=== PATIENT | male | born 1960 | race Caucasian/White ===

== ENCOUNTER 2018-04-10 10:21 | Outpatient (CLI) | payer BC, SELFPAY ==
[2018-04-10 11:57] LABS: BUN 19 mg/dL (7-18); CREATININE 0.82 mg/dL (0.70-1.30); Chloride 100 mmol/L (98-107); Glucose 143 mg/dL (70-100); Magnesium 1.7 mg/dL (1.8-2.4); Potassium 4.5 mmol/L (3.5-5.1); Sodium 139 mmol/L (136-145)
== END 2018-04-10 10:22 ==
PROVIDERS: PCP Family Medicine; Visit Provider Internal Medicine Cardiovascular Disease
DX: I48.0 Paroxysmal atrial fibrillation (principal)
CPT/HCPCS: 36415; 80048; 83735

== ENCOUNTER 2018-04-21 10:00 | Outpatient (RCR) | payer BC, SELFPAY ==
--- NOTE | 2018-04-13 09:00 | IE_ITS ---
Date: April 13, 2018 Referring: Jason Hoffmann MD M.D. Diagnosis: Cervical radiculopathy P.T. Diagnosis: Same SUBJECTIVE: History of Present Illness: Dannie complains of intermittent aching sensation throughout the L suprascapular area, occasionally associated with pain throughout the posterolateral L humerus, extensor surface of the forearm and into the thumb. This is associated with paresthesias. His 2nd complaint is of a numbness throughout the L thumb and radial aspect of the forearm. A 58 year old male who developed an onset of cervical spine and L UE pain, and paresthesias approximately 6 weeks ago. He notes his symptoms have intensified some. He has had a couple massage sessions and this gives him some symptomatic relief for 2-3 days. Pain Ratin-7/10 Pain Location: Throughout the L trap, medial L scapular border, and posterolateral aspect of the L humerus, medial aspect of the forearm and into the thumb. Prior Level of Function: Independent with all ADL's Current Level of Function: Continues to work, tends to be more symptomatic on his work days. This increases with lifting heavier weights off the floor. 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 Single, lives with a relative. Comorbidities: A-fib, hypertension and diabetes. Falls in the last year: __X__ No ____Yes - How many? ____ - (if over 2, balance SM needs to be completed) Reported hospitalizations in the last year - __X__ No ____ Yes - Dates of admission/reason: Medications: See Dr. Hoffmann's med list. Quality of Life: ____ Excellent __X__ Good ____ Fair ____ Poor Standardized Measures: NDI score: __12%__ OBJECTIVE: Posture: Obese, mesomorphic, (-) lateral shift, although his head is slightly rotated to the R. Observation: (behavior, atrophy, skin color, etc.) No pain behavior noted, pleasant, and cooperative. Gait: Ambulates without antalgia, able to walk on his heel and toes without weakness. Palpation: Has some increased tone and tenderness throughout the posterolateral cervical musculature on the L compared to the R from PC2-7 and the supra and infraspinatus fossa, and infraspinatus fossa compared to the R. ROM: His cervical spine movements in sitting position are limited in all directions with rotation R 60-70 degrees, L 45-50 degrees. Sidebending to the R 45 to 55 degrees, to the L 35-45 degrees. Extension is 15 to 30 degrees with deviation to the R. Has reproduction of his symptoms with extension, sidebending and rotation to the L. His shoulder motion reveals good initiation of flexion/abduction without pain on movement. R thumb is about the T11 level when reaching behind his back, L thumb 1 above. Elbow, forearm, wrist and digit movements are full and painless with movement. Neuro: Decreased brachioradialis and lesser degree bicep on L compared to the R. Triceps +2 and symmetrical. Has weakness with the ECR and ECU as well as the extensor digitorum and brachioradialis, and bicep. Remaining musculature is 5/5. His grasp on R is 60#, L 30#. Wrist migrates into a flexed position when grasping due to the weak wrist extensors. Diminished sensation to pin prick throughout the C6 dermatomal distribution, that is radial aspect of distal forearm and thumb. Special Tests: Has pain with neuroforaminal closure on the L, some relief with placing his L hand behind his head to decrease tension on the spinal nerve roots , and inconsistent with manual traction in sitting position, but in supine creates some relief. Also with sidebending and rotation to the R to open up the neuroforamen. Treatment: IE: [id number] Manual therapy: ([id number]). Direct treatment time: 60 mins Total treatment time: 60 mins ASSESSMENT: Patient is a 58-year-old male, referred for PT services with the diagnosis of cervical radiculopathy. Patient presents with clinical signs and symptoms consistent with a C6 radiculopathy resulting in motor weakness within the C6 myotome and sensory loss to pin prick in the C6 dermatome, as demonstrated by the following impairment level findings: weakness with gripping and persistent intermittent L UE and cervical spine pain. Impairments are contributing to the following functional limitations: Discomfort with all activities, fortunately he is sleeping relatively well. Patient is assessed as: __X__ Low 67330 ____ Moderate [id number] ____ High [id number] complexity, based on the following: History: (list): Insidious onset of a C6 radiculopathy resulting in weakness in C6 myotome and sensory diminution with C6 dermatome. X See comorbidities and social history. Examination: (list): Pain with all functional activities, especially lifting X See above for functional limitations and impairments. Presentation: Stable . X Evolving Unstable Decision-Making: X Low complexity Moderate complexity High complexity % Disability based on NDI of 12% __X__ Patient requires skilled PT intervention to remediate the above functional limitations to return to: __X__ Premorbid level of function Prognosis: ____ Excellent __X__ Good ____ Fair ____ Poor STG: __6__ weeks. 1: Decrease compressive loading of the C6 nerve root to allow healing. 2: Clear out trigger points secondary to muscular splinting due to pain, to create comfort with regular ADL's. LTG: __12__ weeks. 1: Return to premorbid level of function. PLAN: Session today consisted of the evaluation along with instruction in a HEP consisting of neuroforaminal opening exercises for L. Position his work load to the R allows him to rotate in this direction vs the opposite direction, etc. . . I tried a session of over the door traction with 11#, this was comfortable, so I sent him home with a unit to be used as needed especially when symptomatic. He will have a follow up appt in 1 week. If his symptoms persist, or regress to contact me, otherwise will re-evaluate him in one week. Thank you for this referral. Please do not hesitate to contact me with any questions or concerns regarding this patient's plan of care.
--- NOTE | 2018-04-21 10:00 | PTTR_ITS ---
DATE: 04/21/18 SUBJECTIVE: Dannie states that his symptoms are pretty much unchanged compared to last week. He has used the over the door traction unit occasionally , but without any significant change in his symptoms. He complains of intermittent discomfort throughout the posterolateral aspect of the cervical spine into the suprascapular area and interscapular region on the L, as well as occasional paresthesias throughout the C6 dermatome. He feels his sensation is a little better distally though compared to what it was. OBJECTIVE: Was seen approximately 1 week ago with a C6 radiculitis. He was issued a cervical over the door traction unit and has used it a few times. His cervical spine movements show intensification of his symptoms with neck extension, rotation and sidebending to the L. It diminishes with sidebending to the R. When I assess his cervical spine he is limited to about 30 degrees and his head deviates to the R to open up the neuroforamen on the L. AA in supine position with mobilization and manual traction, he gets close to 60 degrees of sidebending to the R as well as rotation to the R, close to 80 degrees. Sidebending to the L though creates symptoms at around 10-15 degrees and with some light traction I can increase him from 30 to 45 before his symptoms occur. His rotation is close to 70 degrees with traction. 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 He also had a couple trigger points throughout the paraspinal muscles in the upper to mid cervical spine on the L and I clear these with Kervin strain, counterstrain techniques followed by gentle myofascial stretching. Manual therapy: ([id number]). Direct treatment time: 30 mins Total treatment time: 30 mins A: Continues to be symptomatic, which is to be expected. He is about 8 weeks since his symptoms occurred. I contacted Dr. Hoffmann's office to discuss his medication regime, possibility of starting some oral steroids. I talked to his nurse as he was not available, I emailed him a note discussing this. See how he responds. P: Have Shahzad continue with his HEP using traction especially when he is symptomatic. Avoid rotating and sidebending his head to the L and extending. Contact him once I hear from Dr. Hoffmann. DLW/domonique
== END 2018-05-01 23:59 | disposition home or self-care (01) ==
LOC: PT 10:00
PROVIDERS: PCP Family Medicine; Referring Provider Family Medicine; Visit Provider Family Medicine
DX: M50.122 Cervical disc disorder at C5-C6 level with radiculopathy (principal)
CPT/HCPCS: 97140; 97161

== ENCOUNTER 2018-06-15 14:32 | Outpatient (CLI) | payer BC, SELFPAY ==
--- NOTE | 2018-06-15 13:08 | DI.RAD_ITS ---
SYMPTOMS/DIAGNOSIS: CERVICAL RADICULOPATHY, M54.12 CERVICAL SPINE: Eight views were obtained. There is some loss of the cervical lordosis. There is slight disc space narrowing at C 4 - 5 and moderate disc space narrowing at C 6 - 7 consistent with disc degeneration. Moderate hypertrophic spurring is noted involving the vertebral endplates particularly at C 6 - 7. Mild facet joint hypertrophic degenerative changes noted throughout the cervical region. The neural foramina appear fairly well maintained on the images obtained. No erosive or destructive lesions seen. CONCLUSION: Degenerative changes of the cervical spine as described above.
== END 2018-06-15 14:52 ==
PROVIDERS: PCP Family Medicine; Visit Provider Family Medicine
DX: M54.12 Radiculopathy, cervical region (principal); M50.33 Other cervical disc degeneration, cervicothoracic region
CPT/HCPCS: 72050

== ENCOUNTER 2018-08-21 17:43 | Outpatient (REF) | payer BC, SELFPAY | END 2018-08-21 18:03 | LOC: NCHCN 17:43 | PROVIDERS: PCP Family Medicine; Visit Provider Family Medicine | DX: E83.42 Hypomagnesemia (principal); Z53.8 Procedure and treatment not carried out for other reasons | CPT/HCPCS: 80048; 85027; 83735 ==

== ENCOUNTER 2018-08-26 19:13 | Outpatient (REF) | payer BC, SELFPAY ==
[2018-08-26 19:47] LABS: Anion Gap 8.4 mmol/L (3-11); BUN 17 mg/dL (7-18); CO2 30.6 mmol/L (21.0-32.0); CREATININE 0.73 mg/dL (0.70-1.30); Calcium 9.1 mg/dL (8.5-10.1); Chloride 98 mmol/L (98-107); Glucose 182 mg/dL (70-100); Magnesium 1.9 mg/dL (1.8-2.4); Potassium 4.4 mmol/L (3.5-5.1); Sodium 137 mmol/L (136-145)
[2018-08-26 19:59] LABS: HCT 44.5 % (40.0-50.0); HGB 14.3 g/dL (13.5-17.5); Mean Corp. HGB Concentration 32.1 g/dL (32.0-36.0); Mean Corpuscular Hemoglobin 26.9 pg (27.0-33.0); Mean Corpuscular Volume 83.8 fL (80-95); Mean Platelet Volume 11.6 fL (8.0-11.0); Platelet Count 288 x1000/uL (130-400); RBC 5.31 m/cumm (4.50-6.00); White Blood Cell Count 10.54 k/cumm (4.4-10.8)
== END 2018-08-26 19:33 ==
LOC: NCHCN 19:13
PROVIDERS: PCP Family Medicine; Visit Provider Family Medicine
DX: E83.42 Hypomagnesemia (principal); I10 Essential (primary) hypertension; I48.0 Paroxysmal atrial fibrillation; Z01.818 Encounter for other preprocedural examination
CPT/HCPCS: 80048; 85027; 83735

== ENCOUNTER 2019-01-27 10:37 | Outpatient (CLI) | payer BC, SELFPAY ==
--- NOTE | 2019-01-27 10:35 | DI.RAD_ITS ---
SYMPTOMS/DIAGNOSIS: PAIN RIGHT KNEE: AP and lateral images are provided. Degenerative changes involving the patellofemoral joint are noted and there are small periarticular hypertrophic spurs. On the frontal image there are some faint calcific densities projected over the medial and lateral tibial eminence raising the possibility of joint mice. There is no significant narrowing of the medial and lateral tibial femoral joint compartment. SUMMARY: Findings consistent with moderate DJD.
== END 2019-01-27 10:57 ==
PROVIDERS: PCP Family Medicine; Visit Provider Physician Assistant Surgical
DX: M25.561 Pain in right knee (principal); M17.11 Unilateral primary osteoarthritis, right knee
CPT/HCPCS: 73560

== ENCOUNTER 2019-03-05 08:36 | Outpatient (CLI) | payer BC, SELFPAY | END 2019-03-05 08:56 | PROVIDERS: PCP Family Medicine; Visit Provider Internal Medicine Cardiovascular Disease | DX: I48.91 Unspecified atrial fibrillation (principal); I10 Essential (primary) hypertension; Z79.01 Long term (current) use of anticoagulants; Z79.899 Other long term (current) drug therapy | CPT/HCPCS: 93005; 93010 ==

== ENCOUNTER 2019-03-08 10:58 | Outpatient (CLI) | payer BC, SELFPAY ==
[2019-03-08 12:34] LABS: Anion Gap 10.1 mmol/L (3-11); BUN 17 mg/dL (7-18); CO2 26.9 mmol/L (21.0-32.0); CREATININE 0.86 mg/dL (0.70-1.30); Chloride 98 mmol/L (98-107); Glucose 266 mg/dL (70-100); Magnesium 1.8 mg/dL (1.8-2.4); Potassium 4.9 mmol/L (3.5-5.1); Sodium 135 mmol/L (136-145)
== END 2019-03-08 11:18 ==
PROVIDERS: PCP Family Medicine; Visit Provider Internal Medicine Cardiovascular Disease
DX: I48.91 Unspecified atrial fibrillation (principal)
CPT/HCPCS: 36415; 80048; 83735

== ENCOUNTER 2019-07-27 11:27 | Outpatient (CLI) | payer BC, SELFPAY ==
--- NOTE | 2019-07-27 11:21 | DI.RAD_ITS ---
EXAM: XR KNEE RT 2V AP,LAT INDICATION: pain. COMPARISON: XR knee RT 2V AP,lat from 01/27/2019 TECHNIQUE: 2D digital imaging was performed. FINDINGS: The femoral tibial joint spaces are well maintained. There is spurring from the femoral condyles and tibial plateaus. Multiple joint space loose bodies are seen. There is severe narrowing of the sutherland llofemoral joint with a [id number] appearance and prominent spurring. IMPRESSION: Severe patellofemoral degenerative changes and joint space loose bodies.
== END 2019-07-27 11:47 ==
PROVIDERS: PCP Family Medicine; Visit Provider Orthopaedic Surgery
DX: M25.561 Pain in right knee (principal); M23.41 Loose body in knee, right knee; M22.2X1 Patellofemoral disorders, right knee
CPT/HCPCS: 73560

== ENCOUNTER 2019-08-18 10:13 | Outpatient (REF) | payer BC, SELFPAY ==
[2019-08-18 19:31] LABS: Anion Gap 10.3 mmol/L (3-11); BUN 19 mg/dL (7-18); CO2 28.7 mmol/L (21.0-32.0); CREATININE 0.73 mg/dL (0.70-1.30); Calcium 9.2 mg/dL (8.5-10.1); Chloride 99 mmol/L (98-107); Glucose 124 mg/dL (74-106); Magnesium 1.8 mg/dL (1.8-2.4); Potassium 4.5 mmol/L (3.5-5.1); Sodium 138 mmol/L (136-145)
== END 2019-08-18 10:33 ==
LOC: NCHCN 10:13
PROVIDERS: PCP Family Medicine; Visit Provider Family Medicine
DX: I10 Essential (primary) hypertension (principal); Z00.00 Encounter for general adult medical examination without abnormal findings; E83.42 Hypomagnesemia; I48.0 Paroxysmal atrial fibrillation
CPT/HCPCS: 80048; 83735

== ENCOUNTER 2020-01-13 09:08 | Outpatient (CLI) | payer BC, SELFPAY ==
[2020-01-14 15:31] LABS: COVID-19 RT-PCR Result NEGATIVE (Negative)
== END 2020-01-13 09:28 ==
PROVIDERS: PCP Family Medicine; Visit Provider Orthopaedic Surgery
DX: Z11.59 Encounter for screening for other viral diseases (principal); Z01.818 Encounter for other preprocedural examination; M17.11 Unilateral primary osteoarthritis, right knee
CPT/HCPCS: U0003

== ENCOUNTER 2020-01-17 06:05 | Inpatient (IN) | payer BC, SELFPAY ==
[2020-01-17] VITALS (16 sets, daily range): BP systolic 119–152; BP diastolic 53–80; PULSE 72–89; RESP 12–22; TEMP 36.5–37.5; O2SAT 92–98
[2020-01-17] MEDS: Lactated Ringers 1,000 ML 80 ML IV ×2 (06:45→09:07)
[2020-01-17 06:53] LABS: INR 1.2 (0.9-1.1); Prothrombin Time 11.7 sec (9.3-11.0)
[2020-01-17] MEDS: Bupivacaine 0.5% Pres-Free 30 ML VIAL (07:22)
[2020-01-17] MEDS: Bupivacaine LIPOSOME/PF 133 MG/10 ML VIAL IJ (07:22)
--- NOTE | 2020-01-17 07:22 | HPE_ITS ---
Assessment and Plan Assessment and plan (1) Osteoarthritis of right knee: Status: Chronic Assessment and plan: Plan: Patient tested negative for Covid-19 on 01/13/20. Denies any contact with Covid-19 positive persons. Educated patient on surgery covering surgical technique, recovery process, benefits and risks including but not limited to risk of infection, blood clot, damage to soft tissue/blood vessels/nerves in detail. After discussion patient gives verbal understanding of risks and elects to proceed with scheduling surgery. Patient had opportunity to have questions answered to their satisfaction. They will contact office if issues arise. Patient will continue to be scheduled for right TKA with Dr. Calvin. History of Present Illness Narrative: Mr. Montoya is a 59-year-old male who presents to clinic for complaints of right knee pain. He has been seen in orthopedic clinic several times for his right DJD. He saw his PCP and received clearance for surgery on 11/10/2019. Denies any changes in his medical history from that visit. Review of Systems Cardiovascular Cardiovascular: Denies chest pain and Denies dyspnea Respiratory Respiratory: Denies cough and Denies dyspnea [facility] Social History Smoking/Tobacco Use Status: Former Tobacco Use Quit Date: 09/01/90 Tobacco: How many years used: 13 Drug use: Never Household members: spouse Housing: house Do you feel safe in your relationship?: Yes Meds Home Medications and Allergies Home Medications Medication Instructions Recorded Confirmed Type Lantus U-100 Insulin 51 unit SQ HS 01/12/13 01/17/20 History acetaminophen [Tylenol] 650 mg PO PRN PRN 01/12/13 01/17/20 History metformin [Glucophage] 1,000 mg PO BID 01/12/13 01/17/20 History simvastatin 40 mg PO DAILY 03/03/15 01/17/20 History metoprolol tartrate 50 mg PO BID 09/19/15 01/17/20 History lisinopril 40 mg PO DAILY 02/01/16 01/17/20 History torsemide 5 mg PO DAILY 02/07/16 01/17/20 History felodipine 5 mg PO DAILY 03/26/17 01/17/20 History glipizide 10 mg PO DAILY 03/26/17 01/17/20 History nitroglycerin [Nitrostat] 0.4 mg SUBLINGUAL Q5 MIN PRN X3 03/26/17 01/17/20 Rx PRN #25 tab dofetilide [Tikosyn] 500 mcg PO Q12H #180 tab-cap NS 07/17/17 01/17/20 Rx spironolactone 12.5 mg PO DAILY tab-cap 07/17/17 01/17/20 History dulaglutide [Trulicity] 0.75 mg SQ weekly 04/10/18 01/17/20 History warfarin 5 mg tablet 5 mg PO DAILY 01/27/19 01/17/20 History magnesium 250 mg PO DAILY 01/12/20 01/17/20 History Allergies Allergy/AdvReac Type Severity Reaction Status Date / Time No Known Allergies Allergy Verified 11/17/19 10:22 Exam Resp Effort & Inspection: normal respiratory effort and able to speak in complete sentences Auscultation: clear to auscultation bilaterally, no rales, no rhonchi and no wheezes Cardio Heart Sounds: S1 normal, S2 normal and no murmurs Results Labs Labs: Laboratory Results - last 24 hr 01/17/20 06:34 PT 11.7 H INR 1.2 H Last Vital Signs Temp 37.2 C 01/17/20 06:31 Pulse 74 01/17/20 06:31 Resp 16 01/17/20 06:31 BP 141/80 H 01/17/20 06:31 Pulse Ox 97 01/17/20 06:31
[2020-01-17] MEDS: ceFAZolin 2 GM/50 ML BAG IVPB ×3 (07:55→17:54)
[2020-01-17] MEDS: Hydrogen Peroxide 3% 480 ML BTL (08:20)
[2020-01-17] MEDS: Tranexamic Acid 1,000 MG/10 ML VIAL 1000 MG (09:42)
[2020-01-17] MEDS: Normal Saline 100 ML (09:42)
[2020-01-17] MEDS: Normal Saline 50 ML 100 ML (09:42)
--- NOTE | 2020-01-17 11:33 | DI.RAD_ITS ---
EXAM: XR KNEE RT 2V AP,LAT CLINICAL HISTORY: check total knee components in RR. TECHNIQUE: 2D digital imaging was performed. COMPARISON: CR XR KNEE RT 2V AP,LAT from 07/27/2019 FINDINGS: BONES: No acute fracture is present. No bony destructive lesion is seen. JOINTS: The patient is now status post right total knee replacement. The orthopedic hardware appears in good position. SOFT TISSUE: Postsurgical changes are seen in the soft tissues. IMPRESSION: Status post right total knee replacement. DATA REPOSITORY: RADIATION DOSE DELIVERED:
[2020-01-17] MEDS: HYDROmorphone 2 MG/ML VIAL IVP (11:53)
[2020-01-17] MEDS: Normal Saline Flush 10 ML SYR IV ×2 (11:53→12:52)
[2020-01-17] MEDS: POTASSIUM CHLORIDE/0.9% NACL 1,000 ML 125 MEQ IV ×2 (12:52→21:57)
[2020-01-17] MEDS: oxyCODONE-CR 10 MG TABCR PO ×2 (12:59→23:59)
--- NOTE | 2020-01-17 13:36 | IN_ITS ---
Date of service: 01/17/20 Time of Service: 13:36 PT Notes Visit Reasons: OA (R) KNEE Physical Therapy Inpatient Initial Evaluation Date: 01/17/2020 Referring Doctor: Dannie Gganon MD PT Orders: PT CONSULT: Status post Ortho surgery. Get OOB ambulating in room this afternoon. Precautions: Fall. Standard. WBAT on right LE. Patient Profile/Admitting Diagnosis: Dannie is a 59-year-old male with primary osteoarthritis of right knee and is status post total knee arthroplasty on postoperative day 0. He is COVID-19 negative as of 01/13/2020. PMHX: Medical History Paroxysmal atrial fibrillation, no recurrence on rhythm control medication Type 2 diabetes, on oral agents and insulin Hypertension Hyperlipidemia DJD Obstructive sleep apnea with limited CPAP compliance Morbid obesity Chronic diarrhea Surgical History Umbilical hernia repair Right hip arthroplasty Social History/Home Situation: Dannie will transition to his cousin's house upon discharge from this hospital as he states that the house is a more conducive for him having no stairs and having everything that is needed on one floor. He then plans on going to live in a private home with his mother once he is ready. Equipment Owned/DME: Front wheeled walker, single-point cane cane, raised toilet seat, manual recliner Subjective: Patient reports an achy sensation on the right knee and that was aggravated with bed mobility but subsided with ambulation activity. He states that he does feel stiff and the pain is mostly on the top of his knee. He states that he will be headed straight to his cousin's house once discharged from here. He elaborates that he does not have any steps to deal with at his cousin's place and that everything is on one floor. He denies headache, chest pain, and dizziness throughout PT session Objective: General Observation: Mariano wraps under knee immobilizer on right knee. Mijares catheter in place. IV in the left UE. Surgical drain in place. Mental Status: Alert and oriented x4 Pain: Achy type of pain 8/10 from supine to sit went down to 6/10 with ambulation. ROM: Right Upper Extremity: Shoulder Flexion WFL. Shoulder abduction WFL. Elbow flexion WFL. Wrist flexion WFL. Opening and closing of hand WFL. Left Upper Extremity: Shoulder Flexion WFL. Shoulder abduction WFL. Elbow flexion WFL. Wrist flexion WFL. Opening and closing of hand WFL. Right Lower Extremity: Hip flexion NT. Hip abduction NT. Knee flexion NT. Ankle dorsiflexion WFL. Ankle plantarflexion WFL. Left Lower Extremity: Hip flexion WFL. Hip abduction WFL. Knee flexion WFL. Ankle dorsiflexion WFL. Ankle plantarflexion WFL. Strength: Right Upper Extremity: Shoulder flexors 4/5. Shoulder abductors 4/5. Elbow flexors 5/5. Elbow extensors 5/5. Publications Sales Representative strong. Left Upper Extremity: Shoulder flexors 4/5. Shoulder abductors 4/5. Elbow flexors 5/5. Elbow extensors 5/5. Publications Sales Representative strong. Right Lower Extremity: Hip flexors NT. Hip abductors NT. Knee flexors NT. Knee extensors NT. Ankle dorsiflexors 4/5. Ankle plantarflexors 4/5. Left Lower Extremity: Hip flexors 5/5. Hip abductors 4/5. Knee flexors 5/5. Knee extensors 4/5. Ankle dorsiflexors 5/5. Ankle plantarflexors 5/5. Sensation: Intact as to pain and pressure on bilateral lower extremities. Bed Mobility/Transfers: Rolling contact-guard assist Supine to sit contact-guard assist with HOB at 45 degrees Sit to stand contact-guard assist with verbal cueing needed for hand placement Stand to sit contact-guard assist with verbal cueing needed to slide right LE forward to minimize pain during descent Bed to chair contact-guard assist with verbal cueing needed for hand placement Chair to bed contact-guard assist with verbal cueing needed for hand placement Gait: Patient tolerated level surface ambulation of 60 feet with step to gait pattern using the front wheeled walker with WBAT on right LE requiring contact- guard assist of PT and wheelchair follow and IV pole management of POWER SAW MECHANIC. Decreased alanna. Step to gait pattern. Decreased knee flexion on right due to knee immobilizer and postop status. Balance: Static Sitting: Normal Dynamic Sitting: Good Static Standing: Fair Dynamic Standing: Fair Special Tests: Mobility Limitations Standardized Measure [facility] AM-PAC 6 clicks Basic Mobility Inpatient Short Form: Raw Score: 18 CMS Score: 47% deficit Informed Consent/Education: Patient instructed in purpose of PT consult and plan of care. Assessment: Patient demonstrates need for an assistive device for all mobility ADL performance, difficulty with walking, unsteadiness of gait, decreased range of motion and strength right knee muscle group. Patient presents with clinical signs and symptoms consistent with current/admitting diagnoses that have resulted to mobility limitations, gait instability, generalized weakness, and impairment of motor control as demonstrated by the following impairment level findings: 1. Decreased strength to R LE major muscle groups 2. Impaired standing balance 3. Impaired activity tolerance 4. Limitation of joint range of motion in right knee Impairments are contributing to the following functional limitations: 1. Dependent bed mobility skills 2. Increased dependence with transfers 3. Inability to safely ambulate without assistive device and physical assistance 4. Increase completion time for mobility ADL performance 5. Increased fall risk 6. Inability to negotiate steps alone safely Patient is assessed as a 9062 moderate complexity based on the following: History: 59-year-old with male with impairment level findings, functional limitations, and past medical history as indicated above Examination: Demonstrable impairment in strength, balance, and range of motion with underlying impairments and functional limitations as documented above Presentation: Evolving Decision Makin moderate complexity Goals: Goals X1 week 1. Supine-Sit independent 2. Sit-Supine independent 3. Sit-Stand independent 4. Stand-Sit independent 5. Bed-Chair independent 6. Chair-Bed independent 7. Independent gait on level surface with use of least restrictive device for at least 300 feet without report of pain nor dyspnea 8. Independent with home exercise program 9. Good static and dynamic standing balance/tolerance Plan of Care/Treatment Plan: 1-2x/day, 7 days/week x 1 week. Initiate Physical Therapy intervention for strengthening, bed mobility, transfers, gait, stairs, balance training, use of assistive device. PT Intervention: Session today consisted of initial physical therapy evaluation as well as education and training on safe strategies for mobility ADL performance using front wheel walker. DISCHARGE RECOMMENDATIONS: Home with cousin at cousin's house when medically cleared. No equipment needs at this time. TREATMENT CODE/TIME: 91200 x 25 minutes, 9753 0 x 13 minutes beginning at 13:36 PM Thank you very much for this referral. Tasneem Eller PT, DPT, CLT [facility] [place], [place]
[2020-01-17] MEDS: HYDROcodone 5/Acetaminophen 325 TAB PO (14:14)
[2020-01-17] MEDS: Docusate Sodium 100 MG CAP PO ×2 (14:14→20:04)
[2020-01-17] MEDS: Gabapentin 100 MG CAP PO ×2 (14:14→20:04)
--- NOTE | 2020-01-17 14:44 | RESPIRATORY ---
Patient stated he doesn't use a CPAP machine for his GAURAV, he can't sleep with the machine on. He stated he still has the machine which was prescribe to him and is thinking about contacting [facility] about getting refitted for a nasal mask. Currently, he has a facial mask and it's not comfortable to sleep in. He said his sleep study was over 5years or more ago.
--- NOTE | 2020-01-17 15:33 | ROE_ITS ---
Date of service: 01/17/20 Time of Service: 11:02 Operative Note Operative Note DATE OF PROCEDURE: 01/17/20 PRE-OP DIAGNOSIS: Osteoarthritis right knee POST-OP DIAGNOSIS: same PROCEDURE: Right total knee arthroplasty SURGEON: Dannie Calvin ANESTHESIA: JUSTINA PATHOLOGY: none sent TOURNIQUET TIME: 2 COMPLICATIONS: None Patient was transported to: PACU Patient's condition: stable Implants: Size 3 posterior cruciate substituting femoral component Size 3 tibial component Size 3 posterior cruciate substituting 10 mm polyethylene insert 35 mm tri-prong patella Indications: This 59-year-old white male with a several day history of progressive right knee pain. He was hoping to be able to continue to work until he was 63 years old. His pain increased to the point where he could no longer do his daily work at [employer]. He has been treated with anti-inflammatory medications and multiple steroid injections over the years. He was no longer getting any relief of pain from these measures. His ability to walk was extremely limited because of the pain. Patient was being treated with warfarin and rate control for atrial fibrillation. He also was a insulin-dependent diabetic. Preoperative clearance was obtained through his family physician. His warfarin was stopped 96 hours prior to surgery. His INR on the date of surgery was 1.2. Testing for COVID-19 was negative for infection. Total knee arthroplasty was recommended for relief of his symptoms. The risks and complications of the procedure have been discussed with him on several occasions in detail. Patient was taken the operating on day of surgery 01/17/2020. Operative table and a general anesthetic was administered. A femoral nerve block was also performed. Proximal tourniquet was applied to the right upper thigh. The right lower extremity was prepped from toes to tourniquet and draped free in the usual sterile fashion. The right lower extremity was exsanguinated by elevation and then the tourniquet was inflated to 400 mmHg. An anterior midline incision was made beginning 4 inches proximal to the patella extending to the tibial tube rcle. Incision was carried down to the skin and subcu to the fascia. A medial parapatellar capsular incision was then made it was extended proximally longitudinally in line with the quadriceps tendon. Medial subperiosteal release was performed. Patella was everted knee was hyperflexed. Anterior posterior cruciate ligaments were sacrificed. Medial lateral meniscectomies were performed. The distal femur was resected using intramedullary alignment guides and jigs. He was found to require a size 3 femoral component. Distal cut out was performed for a posterior cruciate sacrificing component. The proximal tibia was resected using extra medullary alignment guides and jigs. Patient was found to require a size 3 tibial component. Rotational alignment was marked and then the keel for the tibial component was reamed and punched out in proper rotation alignment. Trial reduction at this point showed that the knee came to full extension and was stable to varus and valgus stressing from 0 to 90 degrees of flexion with a 10 mm insert. Finally the patella was resected using patellar resection guide to a thickness of 16 mm. Using the guide for the tri-prong patella 35mm, the holes for the 35mm patella were reamed in proper rotation alignment. The proximal tibia was prepared for cementing using pulse irrigation lavage of saline solution and drying with peroxide soaked strip spong es. One batch of gentamicin impregnated methylmethacrylate vacuum mixed and hand packed into the proximal tibia. Some cement was packed onto the undersurface of the tibial component as well. Tibial component was inserted and impacted into place. Excess fat was trimmed from the margins of the tibial component with the plastic cement removal tool. Trial components were placed in the knee was extended the pressurized the cement. When the is cemented fully cured trial components were removed. At this point it was noted that he was getting a lot of backbleeding from the tourniquet. The knee was irrigated with the 2 g of tranexamic acid and 150 cc of saline and the tourniquet was released. This seemed to have stopped the bleeding. The distal femur and patella were then prepared for cementing with pulse irrigation of the saline solution and drying with peroxide soaked strip sponges. Bony block was placed in the femur to include the medullary canal. Another batch of gentamicin impregnated methylmethacrylate was vacuum mixed then hand packed onto the distal femur and patella. Cement was then packed onto the posterior aspect of the femoral component and the patella component. Femoral component was inserted onto the distal femur and impacted in place with impactor and mallet. Trial insert was placed and the knee was extended to pressurized the cement. Patella component was inserted and pressurized using patella clamp. Excess cement was trimmed from the margins of the femoral component patella component with a plastic cement removal tool while cement was still soft. When the second batch of methylmethacrylate is cured the knee was irrigated a final time with pulse irrigation lavage and the remainder of the tranexamic acid. Patella tracking using the rule of no thumb showed anatomic tracking of the patella. A dry wound was obtained with the tourniquet deflated. Any obvious bleeders were cauterized. The wound margins were infiltrated with 0.5% Marcaine solut ion. The actual polyethylene insert size 310 mm posterior cruciate substituting was inserted into the tibia and reduced on the femoral condyles. The right knee was flexible soft good and closure was begun. The medial capsule and quadriceps tendon were repaired with interrupted [id number] sutures of #1 Vicryl trapezial. The subcu was approximated interrupted 2-0 Vicryl sutures. The skin edges approximated with a running 3-0 Monocryl suture. A supplemented by tissue glue and Steri-Strips. A hiram negative pressure incision dressing was applied. Over the pressure dressing applied 3 ABD pads wrapped with 6 inch Mariano bandages. The right lower extremity was placed in a knee immobilizer splint. Estimated blood loss was 500 cc. Patient tolerated procedure well and experienced no intr aoperative complications. He received in addition to the tranexamic acid irrigation, 1 g tranexamic acid prior to tourniquet inflation and 1 g of tranexamic acid after tourniquet deflation. Patient was extubated in the operating room was transferred to the recovery room in good condition.
[2020-01-17] MEDS: metFORMIN 500 MG TAB 1000 MG PO (16:51)
[2020-01-17] MEDS: Ketorolac 30 MG/ML VIAL IVP (17:54)
[2020-01-17] MEDS: Simvastatin 40 MG TAB PO (20:04)
[2020-01-17] MEDS: Dofetilide 250 MCG CAP 500 MCG PO (20:04)
[2020-01-17] MEDS: Metoprolol 50 MG TAB PO (20:04)
[2020-01-17] MEDS: Insulin Glargine 300 UNITS/3 ML PEN 51 UNITS SC (21:32)
[2020-01-18] VITALS (7 sets, daily range): BP systolic 109–138; BP diastolic 63–79; PULSE 68–85; RESP 16–19; TEMP 36.8–37.5; O2SAT 93–97
[2020-01-18] MEDS: ceFAZolin 2 GM/50 ML BAG IVPB ×3 (00:01→11:04)
[2020-01-18] MEDS: Ketorolac 30 MG/ML VIAL IVP ×5 (00:01→23:00)
[2020-01-18] MEDS: Normal Saline Flush 10 ML SYR IV ×3 (06:22→17:12)
[2020-01-18 07:05] LABS: HCT 38.4 % (40.0-50.0); Mean Corp. HGB Concentration 31.3 g/dL (32.0-36.0); Mean Corpuscular Hemoglobin 26.3 pg (27.0-33.0); Mean Platelet Volume 10.6 fL (8.0-11.0); Platelet Count 272 x1000/uL (130-400); RBC 4.57 m/cumm (4.50-6.00); RBC Distribution Width 15.3 % (11.8-14.1); White Blood Cell Count 13.51 k/cumm (4.4-10.8)
[2020-01-18] MEDS: glipiZIDE 10 MG TAB PO (07:41)
[2020-01-18] MEDS: Dofetilide 250 MCG CAP 500 MCG PO ×2 (07:41→19:33)
[2020-01-18] MEDS: metFORMIN 500 MG TAB 1000 MG PO ×2 (07:41→17:12)
[2020-01-18] MEDS: Pantoprazole 40 MG TABCR PO (07:41)
[2020-01-18] MEDS: Docusate Sodium 100 MG CAP PO ×3 (07:54→19:33)
[2020-01-18] MEDS: Gabapentin 100 MG CAP PO ×3 (07:54→19:33)
[2020-01-18] MEDS: Multivitamin w/Minerals TAB 1 TAB PO (07:54)
[2020-01-18] MEDS: Metoprolol 50 MG TAB PO ×2 (07:55→19:33)
[2020-01-18] MEDS: Lisinopril 20 MG TAB 40 MG PO (07:55)
[2020-01-18] MEDS: Felodipine 2.5 MG TABCR 5 MG PO (07:55)
[2020-01-18] MEDS: Spironolactone 25 MG TAB 12.5 MG PO (07:56)
[2020-01-18] MEDS: TORSEMIDE 10 MG TAB 5 MG PO (07:57)
[2020-01-18] MEDS: oxyCODONE-CR 10 MG TABCR PO ×2 (11:04→23:03)
--- NOTE | 2020-01-18 11:16 | CHAPLAIN ---
Dannie was sitting up in the recliner when I visited. 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 He said he lives with his mom, in the house he grew up in. His mom is in her 80s, still drives and has all her original parts. Dannie said he was suppose to have in surgery in October, and be back to work this spring, but the delay, because of COVID-19, will keep him out of work now until later this summer. Dannie seems to be comfortable here and is keeping in touch with family by phone.
--- NOTE | 2020-01-18 11:39 | PDOC.CMIN ---
- If Service Date Differs Date of service: 01/18/20 Time of Service: 11:40 Care Management Initial Assess REASON FOR HOSPITALIZATION:: R Knee Replacement PAST MEDICAL HISTORY/PAST SURGICAL HISTORY:: Medical History. Paroxysmal atrial fibrillation, no recurrence on rhythm control medication. Type 2 diabetes, on oral agents and insulin. Hypertension. Hyperlipidemia. DJD. Obstructive sleep apnea with limited CPAP compliance. Morbid obesity. Chronic diarrhea. . Surgical History. Umbilical hernia repair. Right hip arthroplasty. PREVIOUS FUNCTIONAL STATUS/SOCIAL/FAMILY SUPPORTS:: Dannie lives with his mother in [place]. He reports that they live on separate floors and are both very independent. He works for [employer], but has been out of work since September due to his knee trouble. His surgery was postponed due to Covid 19. He is independent at baseline. CURRENT FUNCTIONAL STATUS:: Dannie was sitting up in his bed when CM met with him. He was pleasant and engaged in conversation. He reported that he is planning to recover from surgery at his cousin's house, as it is one level so it will be easier for him to get around. Once he is more ambulatory he will return home. He stated that he is going to attempt to return to work this summer, and if he is not successful he will take an early usp. He reported that he feels he may be ready for discharge tomorrow. CM will continue to follow. ADVANCE DIRECTIVES:: None on file. Has patient been provided with information about the portal?: No Did the patient sign up for the portal?: No CODE STATUS:: Full Code INSURANCE COVERAGE / FINANCIAL ISSUES:: BCBS CURRENT HOME/COMMUNITY SERVICES/EQUIPMENT:: Front wheeled walker, single-point cane cane, raised toilet seat, manual recliner PRIMARY CARE PHYSICIAN:: Jason Hoffmann POTENTIAL DISCHARGE NEEDS:: Evaluations for further needs, follow up appointments PATIENT/FAMILY EDUCATION NEEDS:: Review discharge instructions regarding activity levels and medications, discussion of self care needs including ask me three ANTICIPATED BARRIERS TO DISCHARGE:: None identified at this time. TRANSPORTATION:: via private vehicle by family. PLAN:: Anticipate Dannie will return home when medically cleared. He will be driven home by family via private vehicle. He will follow up with Ortho, as recommended. CM will continue to follow.
[2020-01-18] MEDS: Acetaminophen 325 MG TAB 650 MG PO (13:54)
[2020-01-18] MEDS: POTASSIUM CHLORIDE/0.9% NACL 1,000 ML 60 MEQ IV (13:55)
--- NOTE | 2020-01-18 14:56 | W.PM.PROGNOT ---
Date of Service Date of service: 01/18/20 Time of Service: 14:56 Assessment and Plan Assessment and plan (1) Status post total knee replacement, right: Status: Acute Assessment and plan: Assessment: Stable postop day #1 right total knee replacement. I think you should get enough independence with transfers and ambulation to go home within the next couple of days. Plan: DC IV fluids and leave an IID in place for IV access. Continue to mobilize with physical therapy per protocol for total knee replacement. We will restart his Coumadin tonight. DC home when he is taking only p.o. pain meds and is fully independent with transfers and ambulation. Subjective Subjective Interval history since last seen: He feels very good today. He has not had to use any supplemental IV morphine. Says his pain is well controlled. Exam Narrative Exam Narrative: He is afebrile and vital signs are stable. Hemoglobin is 12 g this morning. Fingerstick glucose was 150 this morning. He has been able to void since his Mijares was DC'd. He got up and ambulated yesterday afternoon with physical therapy. Today he was able to walk from his room to physical therapy room for his exercise session. Dressings were taken down today. There is scant amount of bleeding at the inferior edge of his negative pressure dressing. The reservoir has not needed to be emptied. Neurovascular examination of his right foot is completely normal. He has good active ankle dorsiflexion. Objective Objective Clinical Data: Abnormal lab results 01/18/20 Range/Units 06:35 WBC 13.51 H (4.4-10.8) k/cumm Hgb 12.0 L (13.5-17.5) g/dL Hct 38.4 L (40.0-50.0) % MCH 26.3 L (27.0-33.0) pg MCHC 31.3 L (32.0-36.0) g/dL RDW 15.3 H (11.8-14.1) % Vital Signs Temperature 37.0 C 01/18/20 11:35 Temperature Source Tympanic 01/18/20 11:35 Pulse 71 01/18/20 11:35 Pulse Rhythm Regular 01/18/20 07:45 Respiratory Rate 17 01/18/20 11:35 Respiratory Effort 01/18/20 07:45 Respiratory Depth Normal 01/18/20 07:45 Respiratory Pattern Normal 01/18/20 07:45 Blood Pressure 114/63 01/18/20 11:35 Pulse Oximetry 93 L 01/18/20 11:35 Oxygen Delivery Method Room Air 01/18/20 11:35 Oxygen Flow Rate 0 01/18/20 11:35 Pain Level 3 01/18/20 13:54 Intake & Output 01/17/20 01/18/20 01/18/20 23:59 11:59 23:59 Intake Total 3495 / 4765 780 / 1555 775 / 1555 Output Total 800 / 1450 630 / 930 300 / 930 Balance 2695 / 3315 150 / 625 475 / 625 Intake: IV 1575 / 2845 100 / 875 775 / 875 Oral 1920 / 1920 680 / 680 Output: Urine 800 / 950 630 / 930 300 / 930 Other: Urine Color Yellow Yellow Yellow Urine Appearance Clear Clear Clear Urine Odor Normal Normal Emesis Description None Voiding Methods Urinal Urinal Laboratory Results WBC 13.51 k/cumm (4.4-10.8) H 01/18/20 06:35 RBC 4.57 m/cumm (4.50-6.00) 01/18/20 06:35 Hgb 12.0 g/dL (13.5-17.5) L 01/18/20 06:35 Hct 38.4 % (40.0-50.0) L 01/18/20 06:35 MCV 84.0 fL (80-95) 01/18/20 06:35 MCH 26.3 pg (27.0-33.0) L 01/18/20 06:35 MCHC 31.3 g/dL (32.0-36.0) L 01/18/20 06:35 RDW 15.3 % (11.8-14.1) H 01/18/20 06:35 Plt Count 272 x1000/uL (130-400) 01/18/20 06:35 MPV 10.6 fL (8.0-11.0) 01/18/20 06:35 PT 11.7 sec (9.3-11.0) H 01/17/20 06:34 INR 1.2 (0.9-1.1) H 01/17/20 06:34
--- NOTE | 2020-01-18 15:48 | PHACLINREV_ITS ---
Pharmacy Admission Review - Admission Clinical Review (Last Reviewed 01/17/20 @ 06:23 by Rachana Tanner RN) Status post total knee replacement, right (Acute) No Known Allergies Allergy (Verified 11/17/19 10:22) Height 5 ft 5.5 in Weight 127.1 kg - Renal Dosing Medications needing adjustments: Reviewed (Crcl ~132.9 mL/min using adjusted b amadou weight, current meds okay) - Anticoagulation Anticoagulation: Hgb 12.0 g/dL (13.5-17.5) L 01/18/20 06:35 Hct 38.4 % (40.0-50.0) L 01/18/20 06:35 Plt Count 272 x1000/uL (130-400) 01/18/20 06:35 INR 1.2 (0.9-1.1) H 01/17/20 06:34 DVT Prohphylaxis: Reviewed Therapeutic Anticoagulation: Reviewed Medications: Warfarin (MD decided to hold off on restarting warfarin until tomorrow.) - Opiate Usage Evaluate Pain Scale/Pains Meds: Reviewed Scheduled Bowel Reg ordered if on Opiates?: Yes - Relevant Labs Electrolytes, C-Reactive P, ESR: N/A - DM Control DM Control: Finger Stick Blood Glucose 150 Finger Stick Blood Glucose 184 Insulin Dosing: Reviewed (has scheduled lantus, glipizide, and dulaglutide ordered) - Heart Failure/MD EF%, MARINA's, B-Blockers, Diuretics: Reviewed (lisinopril, metoprolol) - BP Control BP Control: Blood Pressure 116/68 Blood Pressure 114/63 Blood Pressure 128/79 Blood Pressure 109/73 If elevated: N/A - Qtc Review If Elevated: N/A (no recent QTc level, but multiple QTc prolonging meds (promethazine, dofetilide)) - IV to PO Switch IV Medications: N/A - Home Meds Home Med List reviewed: Reviewed (furosemide may enhance the QTc prolonging effect of dofetilide (electrolyte imbalances); monitor K+ and mag when more closely when meds combined. Dulaglutide may enhance the hypoglycemic effect of glipizide; consider dose reductions of glipizide when used with dulaglutide particularly when used with basal insulin.) Relevent Home Meds Not ordered & why?: all ordered - Current meds Current Medication Order Review: Reviewed
--- NOTE | 2020-01-18 17:29 | PTTR_ITS ---
Date of service: 01/18/20 Time of Service: 16:29 PT Notes Visit Reasons: OA (R) KNEE Inpatient Physical Therapy Treatment Note [facility] Date: 01/18/2020 PRECAUTIONS: Fall. Standard. WBAT on right LE. Knee immobilizer on at all times when out of bed. SUBJECTIVE: Patient feels a lot more confident about walking and moving with the front wheeled walker. He continues to report burning type pain on the top of the R knee. 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 OBJECTIVE: Mepilex dressing seen over surgical incision. MARINA wraps removed today by orthopedic surgeon. Wound VAC and dressing remains in place. PAIN: 5/10 on the right knee at rest and with movement. BED MOBILITY/TRANSFERS Supine-sit: Contact-guard assist with HOB elevated at 45 degrees Sit-stand: Standby assist using BUE for support requires the use of front wheeled walker; only required supervision in the afternoon Stand-sit: Standby assist using BUE for support requires the use of front wheeled walker; only required supervision in the afternoon Bed-Chair: Standby assist using BUE for support requires the use of front wheeled walker; only required supervision in the afternoon Chair-bed: Standby assist using BUE for support requires the use of front wheeled walker; only required supervision in the afternoon GAIT Assistive Device: Front wheel walker Weight bearing: WBAT on right LE Assist: Standby assist in the morning but only required supervision in the afternoon Distance: 260 feet x 2 in the morning and 260 feet in the afternoon Deviation: Step to gait pattern pain complaint of 5/10 with ambulation. Decreased alanna. Wheelchair follow no longer needed. No LOB seen. No SOB seen. THEREX: Patient tolerated standing hip abduction exercises x 10 on each leg, hip extension exercises x10 on each leg, and bilateral heel raises x10 while holding onto a stair rail for suppor. Patient was also educated and trained on doing room exercises consisting of ankle pumping x20, quad sets x10, glutes sets x10, and hamstring sets x10 while seated in chair or lying in bed to be done every 2 hours. ASSESSMENT: Patient feels a lot more confident about going home tomorrow using his front wheeled walker for all mobility ADL performance. He demonstrates safe techniques with bed mobility, transfers, and ambulation as long as his pain is well controlled. He will be transitioning to a home that is single level without stairs with the support of his cousin for anything that he will need while recovering. PLAN: Discharge to home when medically cleared. Patient will benefit from the use of a front wheeled walker in order to maximize independence at home. May highly benefit from outpatient physical therapy services according to orthopedic surgeon's determination upon follow-up visit in 1-2 weeks. TREATMENT CODE/TIME: Session 1??12907 x 30 minutes minutes,, 33645 x 19 minutes beginning at 8:56 AM. Session 2??05102 x 40 minutes, 16736 x 14 minutes beginning at 11:11 AM.
[2020-01-18] MEDS: Simvastatin 40 MG TAB PO (19:33)
[2020-01-18] MEDS: Insulin Glargine 300 UNITS/3 ML PEN 51 UNITS SC (21:48)
[2020-01-18] MEDS: HYDROcodone 5/Acetaminophen 325 TAB PO (21:48)
[2020-01-19 03:24] VITALS: BP 131/75; PULSE 67; RESP 18; TEMP 37.1; O2SAT 95
[2020-01-19] MEDS: Normal Saline Flush 10 ML SYR IV ×2 (05:18→12:04)
[2020-01-19] MEDS: Ketorolac 30 MG/ML VIAL IVP ×2 (05:18→12:03)
[2020-01-19 06:41] LABS: HCT 35.4 % (40.0-50.0); HGB 11.1 g/dL (13.5-17.5); Mean Corp. HGB Concentration 31.4 g/dL (32.0-36.0); Mean Corpuscular Hemoglobin 26.5 pg (27.0-33.0); Mean Corpuscular Volume 84.5 fL (80-95); Platelet Count 229 x1000/uL (130-400); RBC 4.19 m/cumm (4.50-6.00); RBC Distribution Width 15.2 % (11.8-14.1); White Blood Cell Count 9.83 k/cumm (4.4-10.8)
[2020-01-19 06:46] LABS: Prothrombin Time 10.5 sec (9.3-11.0)
[2020-01-19 07:18] VITALS: BP 163/71; PULSE 69; RESP 18; TEMP 36.8; O2SAT 96
[2020-01-19] MEDS: metFORMIN 500 MG TAB 1000 MG PO (07:36)
[2020-01-19] MEDS: Lisinopril 20 MG TAB 40 MG PO (07:36)
[2020-01-19] MEDS: Metoprolol 50 MG TAB PO (07:37)
[2020-01-19] MEDS: Docusate Sodium 100 MG CAP PO ×2 (07:37→14:11)
[2020-01-19] MEDS: Pantoprazole 40 MG TABCR PO (07:37)
[2020-01-19] MEDS: Gabapentin 100 MG CAP PO ×2 (07:37→14:11)
[2020-01-19] MEDS: Multivitamin w/Minerals TAB 1 TAB PO (07:37)
[2020-01-19] MEDS: glipiZIDE 10 MG TAB PO (07:37)
[2020-01-19] MEDS: Dofetilide 250 MCG CAP 500 MCG PO (07:37)
[2020-01-19] MEDS: Felodipine 2.5 MG TABCR 5 MG PO (07:37)
[2020-01-19] MEDS: TORSEMIDE 10 MG TAB 5 MG PO (07:38)
[2020-01-19] MEDS: Spironolactone 25 MG TAB 12.5 MG PO (07:38)
[2020-01-19] MEDS: Acetaminophen 325 MG TAB 650 MG PO (10:22)
[2020-01-19 11:09] VITALS: BP 153/54; PULSE 66; RESP 17; TEMP 36.7; O2SAT 95
--- NOTE | 2020-01-19 11:21 | PT.INDS ---
Date of service: 01/19/20 Time of Service: 11:21 PT Notes Visit Reasons: OA (R) KNEE/R total knee Inpatient Physical Therapy Discharge Summary Dates: 01/19/2020 Dates of Service: 01/17/2020 through 01/19/2020 Referring Doctor: Dannie Gagnon MD PT Orders: PT CONSULT: Status post Ortho surgery. Get OOB ambulating in room this afternoon. Precautions: Fall. Standard. WBAT on right LE. Patient Profile/Admitting Diagnosis: Dannie is a 59-year-old male with primary osteoarthritis of right knee and is status post total knee arthroplasty on postoperative day 0. He is COVID-19 negative as of 01/13/2020. PMHX: Medical History Paroxysmal atrial fibrillation, no recurrence on rhythm control medication Type 2 diabetes, on oral agents and insulin Hypertension Hyperlipidemia DJD Obstructive sleep apnea with limited CPAP compliance Morbid obesity Chronic diarrhea Surgical History Umbilical hernia repair Right hip arthroplasty Social History/Home Situation: Dannie will transition to his cousin's house upon discharge from this hospital as he states that the house is a more conducive for him having no stairs and having everything that is needed on one floor. He then plans on going to live in a private home with his mother once he is ready. Equipment Owned/DME: Front wheeled walker, single-point cane cane, raised toilet seat, manual recliner Subjective: Patient stated he is confident that he will do well at home considering that he has his custom who will take care of him as he recovers. He hopes to stay at his cousin's house for a month and then transition back to his own home. Objective: General Observation: Mariano wraps under knee immobilizer on right knee. Mental Status: Alert and oriented x4 Pain: 4?5/10 with movement ROM: Right Upper Extremity: Shoulder Flexion WFL. Shoulder abduction WFL. Elbow flexion WFL. Wrist flexion WFL. Opening and closing of hand WFL. Left Upper Extremity: Shoulder Flexion WFL. Shoulder abduction WFL. Elbow flexion WFL. Wrist flexion WFL. Opening and closing of hand WFL. Right Lower Extremity: Hip flexion NT. Hip abduction NT. Knee flexion -30-60 degrees. Knee extension -30 degrees.. Ankle dorsiflexion WFL. Ankle plantarflexion WFL. Left Lower Extremity: Hip flexion WFL. Hip abduction WFL. Knee flexion WFL. Ankle dorsiflexion WFL. Ankle plantarflexion WFL. Strength: Right Upper Extremity: Shoulder flexors 4/5. Shoulder abductors 4/5. Elbow flexors 5/5. Elbow extensors 5/5. Digital Asset Coordinator strong. Left Upper Extremity: Shoulder flexors 4/5. Shoulder abductors 4/5. Elbow flexors 5/5. Elbow extensors 5/5. Digital Asset Coordinator strong. Right Lower Extremity: Hip flexors NT. Hip abductors NT. Knee flexors NT. Knee extensors NT. Ankle dorsiflexors 4/5. Ankle plantarflexors 4/5. Left Lower Extremity: Hip flexors 5/5. Hip abductors 4/5. Knee flexors 5/5. Knee extensors 4/5. Ankle dorsiflexors 5/5. Ankle plantarflexors 5/5. Sensation: Intact as to pain and pressure on bilateral lower extremities. Bed Mobility/Transfers: Rolling supervision Supine to sit supervision Sit to stand supervision Stand to sit supervision Bed to chair supervision Chair to bed supervision Gait: Patient tolerated level surface ambulation of 260 feet with step to gait pattern using the front wheeled walker with WBAT on right LE requiring standby assist of PT . Increasing alanna. Step to gait pattern. Decreased knee flexion on right due to knee immobilizer and postop status. Balance: Static Sitting: Normal Dynamic Sitting: Normal Static Standing: Fair Dynamic Standing: Fair Assessment: Patient demonstrates meaningful functional mobility improvement during this episode of care. However he continues to exhibit impairments and limitations as listed above and thus may require additional physical therapy services with timeline as advised by orthopedic surgeon. Patient continues to present with clinical signs and symptoms consistent with current/admitting diagnoses that have resulted to mobility limitations, gait instability, generalized weakness, and impairment of motor control as demonstrated by the following impairment level findings: 1. Decreased strength to R LE major muscle groups 2. Impaired standing balance 3. Impaired activity tolerance 4. Limitation of joint range of motion in right knee Impairments are continuing to contribute to the following functional limitations: 1. Increased dependence with transfers 2. Inability to safely ambulate without assistive device and physical assistance 3. Increase completion time for mobility ADL performance 4. Increased fall risk 5. Inability to negotiate steps alone safely Goals: Goals X1 week 1. Supine-Sit independent MET 2. Sit-Supine independent MET 3. Sit-Stand independent NOT MET 4. Stand-Sit independent NOT MET 5. Bed-Chair independent NOT MET 6. Chair-Bed independent NOT MET 7. Independent gait on level surface with use of least restrictive device for at least 300 feet without report of pain nor dyspnea NOT MET 8. Independent with home exercise program NOT MET 9. Good static and dynamic standing balance/tolerance NOT MET DISCHARGE RECOMMENDATIONS: Home with cousin at cousin's house when medically cleared. No equipment needs at this time. Patient will benefit from home health PT services in order to progress mobility level using least restrictive assistive ambulatory device, assess home safety, identify additional equipment needs, and establish a functional maintenance program that will increase ability of patient to remain at home. TREATMENT CODE/TIME: 70048 x 30 minutes, 69811 x 12 minutes beginning at 11:21 AM. Thank you very much for this referral. Tasneem Eller PT, DPT, CLT [facility] [place], [place]
[2020-01-19] MEDS: oxyCODONE-CR 10 MG TABCR PO (12:03)
--- NOTE | 2020-01-19 12:24 | DSE_ITS ---
Date of service: 01/19/20 Time of Service: 12:25 DS: Diagnosis Discharge Diagnosis (1) Status post total knee replacement, right: Status: Acute Discharge Plan Disposition Patient Disposition: HOME Condition: Good Discharge Details Reason For Visit: OA (R) KNEE/R total knee Admit Date/Time: 01/17/20 06:05 Admit Provider: Dannie Calvin Attending Provider: Dannie Calvin Primary Care Provider: Jason Hoffmann [facility] Hospital Course: The patient was taken to the OR on the day of admission where he underwent a R total knee without complications. Post-operatively he was mobilized per protocol for tkr. He remained afebrile throughout his hospital stay. Hgb stabilized at 11.1 g at 48 hours post-op. Warfaron was held. He achieved full independance with transfers and ambulation by 01/19/20. He was taking only PO pain meds. I felt he had met all acute care goals and could be discharged home. Home Meds and New Rx's Prescriptions: New celecoxib 200 mg capsule 200 mg PO BID Qty: 30 RF: 0 oxycodone-acetaminophen 5-325 mg tablet 1 tab PO Q6H PRN (Reason: pain) Qty: 30 RF: 0 Continued dofetilide [Tikosyn] 500 MCG capsule 500 mcg PO Q12H Qty: 180 RF: 3 spironolactone 25 MG tablet 12.5 mg PO DAILY RF: 0 Trulicity 0.75 MG/0.5 ML pen injector 0.75 mg SQ weekly RF: 0 acetaminophen [Tylenol] 325 MG tablet 650 mg PO PRN PRNRF: 0 Lantus U-100 Insulin 100 UNIT/1 ML solution 51 unit SQ HS RF: 0 metformin [Glucophage] 1,000 MG tablet 1,000 mg PO BID RF: 0 warfarin [Coumadin] 5 mg tablet 5 mg PO DAILY RF: 0 simvastatin 40 MG tablet 40 mg PO DAILY RF: 0 metoprolol tartrate 100 MG tablet 50 mg PO BID RF: 0 lisinopril 40 MG tablet 40 mg PO DAILY RF: 0 torsemide 5 MG tablet 5 mg PO DAILY RF: 0 glipizide 10 MG tablet 10 mg PO DAILY RF: 0 felodipine 5 MG tablet extended release 24 hr 5 mg PO DAILY RF: 0 nitroglycerin [Nitrostat] 0.4 MG tablet, sublingual 0.4 mg Sublingual Q5 MIN PRN X3 PRNQty: 25 RF: 0 magnesium 250 mg Tablet 250 mg PO DAILY RF: 0 Discharge Instructions Additional Instructions: Elevate R leg when sitting. Follow up with next Friday. May shower and get dressing wet. Wear long stocking during daytime only on R. Apply cryocuff to R knee 4 times/day for 1 hour each time. Outpatient physical therapy at [facility] starting on Friday. Restart taking your Coumadin tonite. Use walker. Walk every day as much as your discomfort allows. Take celebrex twice/day as prescribed, for swelling and inflammation, Take oxycodone for breakthru pain, if needed. Stop using the knee immobilizer splint when you can lift your straight R leg off the bed without help. Activity:: Activity as Tolerated Equipment/Supplies:: Walker Diet:: As Tolerated Discharge Orders Discharge Orders: Discharge Order (Routine); Ordered 01/19/20 Ordered By: Dannie Calvin DS: Summary Status at Discharge Functional status at discharge: uses cane/walker Overall status at discharge: patient is progressing back to baseline Mental Status: mental status grossly normal Speech and Movement: speech and movement normal Mood: congruent mood Affect: normal affect Exam Psych Mental Status: mental status grossly normal Speech and Movement: speech and movement normal Mood: congruent mood Affect: normal affect DS: Data Vitals/I&O Vitals and I&O: Vital Signs Temperature 36.8 C 01/19/20 07:18 Temperature Source Temporal Artery Scan 01/19/20 07:18 Pulse 69 01/19/20 07:18 Pulse Rhythm Regular 01/19/20 07:43 Respiratory Rate 18 01/19/20 07:18 Respiratory Effort Non-Labored 01/19/20 07:43 Respiratory Depth Normal 01/19/20 07:43 Respiratory Pattern Normal 01/19/20 07:43 Blood Pressure 163/71 H 01/19/20 07:18 Pulse Oximetry 96 01/19/20 07:18 Oxygen Delivery Method Room Air 01/19/20 07:18 Oxygen Flow Rate 0 01/19/20 07:18 Pain Level 5 01/19/20 12:03 Comment 01/18/20 23:00 Intake & Output 01/18/20 01/19/20 01/19/20 23:59 11:59 23:59 Intake Total 1623 / 2403 370 / 370 Output Total 800 / 1430 1100 / 1100 Balance 823 / 973 -730 / -730 Intake: IV 903 / 1003 Oral 720 / 1400 360 / 360 Output: Urine 800 / 1430 1100 / 1100 Other: Urine Color Yellow Yellow Urine Appearance Clear Clear Urine Odor Normal Normal Voiding Methods Urinal Urinal Data Completed and Pending Labs on day of discharge: Labs from last 24 hours 01/19/20 01/19/20 06:10 06:10 WBC 9.83 RBC 4.19 L Hgb 11.1 L Hct 35.4 L MCV 84.5 MCH 26.5 L MCHC 31.4 L RDW 15.2 H Plt Count 229 MPV 11.0 PT 10.5 INR 1.0 PFSH Social History Smoking/Tobacco Use Status: Former Tobacco Use Quit Date: 09/01/90 Tobacco: How many years used: 13 Drug use: Never Household members: spouse Housing: house Do you feel safe in your relationship?: Yes
[2020-01-19] MEDS: HYDROcodone 5/Acetaminophen 325 TAB PO (14:11)
[2020-01-19 14:50] VITALS: BP 97/57; PULSE 60; RESP 16; TEMP 35.2; O2SAT 100
--- NOTE | 2020-01-19 14:50 | W.NUTRFU ---
Date of service: 01/19/20 Time of Service: 14:50 Nutritional Follow up NOTE: 59 year old female admitted for right knee replacement. PMH: obesity, IDDM, HTN. Home meds include metformin, glipizide, lantus, coumadin. Blood sguars ranging from 184-225 mg/dl. No recent A1C. Following regular diet with 100% intake. Recommend changing to CHO diet for optimal blood sugar control. Will follow prn. Not at risk for nutritional decline at this time. Time Spent in Nutritional Counseling and Treatment: o
--- NOTE | 2020-01-19 15:08 | PDOC.CMDIS ---
- If Service Date Differs Date of service: 01/19/20 Time of Service: 15:09 LACE Index Scoring Tool - Questions: Length of Stay (in days): 3 Acuity (Admit via E.D.?): No Comorbidities: Diabetes w/o Complication E.D. Visits: 0 - Answers: Total Score: 4 Risk of Readmission: Low Risk Care Management Discharge Reason for Hospitalization: R Knee Replacement Discharge Plan: Dannie will be discharge to his cousin, Alyse's home for recovery post operatively. Alyse will pick him up via private vehicle. CM coordinated a FWW, as recommended by PT. He will follow up with Ortho, as recommended. He stated that he has very little pain today, and he is agreeable to discharge. Patient/Family Education Needs: Review discharge instructions regarding activity levels and medications, discussion of self care needs and goals of care. Services Needed at Discharge: DME Agency (FW[facility])
== END 2020-01-19 15:00 | disposition home or self-care (01) | DRG 470 ==
LOC: PDS 06:06 → MS 11:20
PROVIDERS: Admitting Provider Orthopaedic Surgery; PCP Family Medicine; Visit Provider Orthopaedic Surgery
PROC: 0SRC0J9 Replacement of Right Knee Joint with Synthetic Substitute, Cemented, Open Approach (ICD-10-PCS; CPT 27447; principal; 2020-01-17 07:30)
DX: M17.11 Unilateral primary osteoarthritis, right knee (principal); Z68.42 Body mass index [BMI] 45.0-49.9, adult; M25.561 Pain in right knee; G89.18 Other acute postprocedural pain; Z96.651 Presence of right artificial knee joint; E11.9 Type 2 diabetes mellitus without complications; Z79.84 Long term (current) use of oral hypoglycemic drugs; I10 Essential (primary) hypertension; E78.5 Hyperlipidemia, unspecified; Z79.01 Long term (current) use of anticoagulants; I48.0 Paroxysmal atrial fibrillation; E66.01 Morbid (severe) obesity due to excess calories
CPT/HCPCS: 27447; 36415; 85027; 97110; 97162; 97530; NC; 73560; 85610; J0131; J0690; J1100; J1885; J2001; J2405; J2704; L1830

== ENCOUNTER 2020-11-08 14:35 | Outpatient (CLI) | payer BC, SELFPAY ==
--- NOTE | 2020-11-08 14:15 | DI.RAD_ITS ---
EXAM: XR SHOULDER RT COMPLETE 2+V CLINICAL HISTORY: right shoulder pain. TECHNIQUE: 2D digital imaging was performed. COMPARISON: No exams were available for comparison FINDINGS: BONES: No acute fracture is present. No bony destructive lesion is seen. JOINTS: No dislocation present. Degenerative changes are seen at the acromioclavicular joint. Mild h ypertrophic changes are seen at the greater tuberosity. SOFT TISSUE: Normal. IMPRESSION: Mild degenerative changes of the right AC joint. DATA REPOSITORY: RADIATION DOSE DELIVERED:
== END 2020-11-08 14:36 | disposition home or self-care (01) ==
LOC: DIORS 14:35
PROVIDERS: PCP Family Medicine; Referring Provider Family Medicine; Visit Provider Student in an Organized Health Care Education/Training Program
DX: M19.011 Primary osteoarthritis, right shoulder (principal)
CPT/HCPCS: 73030

== ENCOUNTER 2020-11-23 01:33 | Outpatient (CLI) | payer BC, SELFPAY ==
--- NOTE | 2020-11-23 06:45 | DI.MRI_ITS ---
EXAM: MR UPPER JOINT RT WO CLINICAL HISTORY: RIGHT SHOULDER PAIN,BURSITIS RT SHOULDER,RUPTURE BICEPS TENDON,IMPINGEMENT TECHNIQUE: Multiplanar multisequence MRI of the shoulder was performed. COMPARISON: X-rays form 11/08/2020 reviewed FINDINGS: MARROW:There is no evidence of fracture, Hill-Sachs deformity, nor ominous osseous lesions. ROTATOR CUFF MECHANISM: AC JOINT/ACROMIUM: There are moderate degenerative changes in the acromioclavicular joint.. There is mild undersurface hypertrophy of soft tissue but no prominent downgoing osteophytes at this level. The undersurface of the acromion is flat. No undersurface impingement hook evident. There is no evidence of os acromiale. Supraspinatus: There is some tendinitis signal in the supraspinatus. There is a small area fluid sig nal through the most anterior fibers of the subscapularis tendon which traversed the entire thickness of the tendon at this 1 level. There is no retraction of the musculotendinous junction. There is n o fluid in the subacromial bursa. There is no prominent atrophy. Infraspinatus: Intact. No evidence of tear nor muscle atrophy. Teres Minor: Intact. No evidence of tear nor muscle atrophy. Subscapularis/anterior cuff: Tendinitis signal. No full-thickness tear. Mild atrophy. BICEPS TENDON: Biceps tendon is torn within the intertubercular groove. No tenosynovitis. LABRUM: Anterior labrum exhibits some increased signal. Posterior labrum is intact. Inferior labrum appears intact. Superior labrum exhibits minimal abnormal signal. No prominent tearing. GLENOHUMERAL JOINT: No joint effusion nor obvious loose intra-articular bodies. No chondral defects. No osteophytes. No degenerative subarticular cysts. No evidence of capsular tear. The inferior gle nohumeral ligament is intact. QUADRILATERAL SPACE: No evidence of mass in the region of the axillary nerve and dorsal circumflex hu meral vessels. Visualized triceps muscle at this level appears unremarkable. IMPRESSION: 1. There is tearing of the biceps tendon in the intertubercular groove. 2. There is no prominent labral tearing nor evidence of paralabral cyst. 3. Small focal area of tearing in the most anterior aspect of the supraspinatus tendon. Remainder of the tendon is attenuated but otherwise intact. Infraspinatus is intact. Mild increased signal in t he subscapularis but no high-grade tear. 4. Moderate degenerative changes in the acromioclavicular joint. Mild degenerative changes in the A C joint. DATA REPOSITORY:
== END 2020-11-23 01:53 ==
PROVIDERS: PCP Family Medicine; Visit Provider Student in an Organized Health Care Education/Training Program
DX: M25.511 Pain in right shoulder (principal); M75.51 Bursitis of right shoulder; S46.011A Strain of muscle(s) and tendon(s) of the rotator cuff of right shoulder, initial encounter; S46.211A Strain of muscle, fascia and tendon of other parts of biceps, right arm, initial encounter; M19.011 Primary osteoarthritis, right shoulder
CPT/HCPCS: 73221

== ENCOUNTER 2021-03-28 17:32 | Emergency (ER) | payer BC, SELFPAY ==
[2021-03-28 17:36] VITALS: BP 171/81; PULSE 73; RESP 16; TEMP 36.7; O2SAT 96
--- NOTE | 2021-03-28 17:50 | ED.GENADUL_ITS ---
Discharge Plan Disposition Patient Disposition: HOME Condition: Stable Discharge Details Clinical Impression: Acute neck pain Primary Care Provider: Jason Hoffmann ED Provider: Lilian Mares Home Meds and New Rx's Prescriptions: Continued dofetilide [Tikosyn] 500 MCG capsule 500 mcg PO Q12H Qty: 180 RF: 3 spironolactone 25 MG tablet 12.5 mg PO DAILY RF: 0 Trulicity 0.75 MG/0.5 ML pen injector 0.75 mg SQ weekly RF: 0 celecoxib 200 mg capsule 200 mg PO BID Qty: 30 RF: 0 acetaminophen [Tylenol] 325 MG tablet 650 mg PO PRN PRNRF: 0 Lantus U-100 Insulin 100 UNIT/1 ML solution 51 unit SQ HS RF: 0 metformin [Glucophage] 1,000 MG tablet 1,000 mg PO BID RF: 0 warfarin [Coumadin] 5 mg tablet 5 mg PO DAILY RF: 0 simvastatin 40 MG tablet 40 mg PO DAILY RF: 0 metoprolol tartrate 100 MG tablet 50 mg PO BID RF: 0 lisinopril 40 MG tablet 40 mg PO DAILY RF: 0 torsemide 5 MG tablet 5 mg PO DAILY RF: 0 glipizide 10 MG tablet 10 mg PO DAILY RF: 0 felodipine 5 MG tablet extended release 24 hr 5 mg PO DAILY RF: 0 magnesium 250 mg Tablet 250 mg PO DAILY RF: 0 Discharge Instructions Instructions: Neck Pain (ED) Additional Instructions: Your imaging today is most concerning for arthritis. You also have tight muscles on exam. Please encourage stretching, massage, heat or ice. Please continue with Celebrex and Tylenol to help with discomfort. You may also use the numbing patches such as lidocaine patches to help with your discomfort. Work note is attached. Please keep upcoming primary care appointment. You may also call to see if you can have this appointment moved up. If you develop any new or worsening symptoms please seek care urgently once again. Referrals: Jason Hoffmann [Primary Care Provider] - Discharge Data Discharge Date/Time-TO BE ENTERED AT DEPARTURE: 03/28/21 20:19 Medical Decision Making Patient pleasant 61-year-old [id number]-nzodiowj male presenting today with chief complaint of neck pain. Patient reports that he had anterior cervical spine fusion of see 4 5 or C5-6 approximately 2 years ago at [facility]. He states that about 2 weeks ago, he was lifting heavy pounds of block of cheese. He denies any trauma. No fall. However, he reports that since then, his pain has progressively increased. He states the pain is better when he is at rest but does increase after a day of work where he has been lifting repetitively. States that he can occasionally have some discomfort that radiates into the left thumb which is how his symptoms initially began over 2 years ago prior to his surgical intervention. On exam, patient appears nontoxic. He has fairly diffuse pain along the spine, some of this is midline. Pain is maximal over the right paraspinal region and extending onto the trapezius. He is tight in this region and does appear to have a last cervical lordosis. He does have discomfort elicited with Spurling's exam but no radiation of pain. This was uncomfortable for the patient in both directions. No neurologic deficit appreciated on exam. No step-off. No erythema or warmth. Patient is concerned about potential displacement of his hardware. Advises more likely to be musculoskeletal discomfort associated with his heavy lifting. Patient does plan to retire shortly secondary to the heavy lifting and having difficulty doing so. We will treat his pain and obtain x-ray for evaluation. FINDINGS: Bones/joints: Straightening of the normal cervical lordosis. CS vertebral body heights are maintained. Fusion at C5-C6. Hardware appears intact. Mild multilevel degenerative disc disease and facet arthropathy. Soft tissues: Normal. IMPRESSION: Mild multilevel degenerative spondylopathy I discussed these findings with the patient. He is relieved to know that the hardware still appears to be in good positioning. Patient did improve after Tylenol and lidocaine patch although pain is now completely subsided. Will refer to physical therapy. We will have him follow-up closely with primary care. I do believe that a lot of his discomfort is associated muscle spasm. I did advise 750 mg of methocarbamol every 8 as needed. However, gentle him to drive will take this medication. We will send him home with 2 doses that he may use when he is not driving. Encourage hydration. Encourage gentle stretching. Return precautions were discussed. All his questions and concerns were addressed and he is in agreement HPI General Mode of arrival: ambulatory . Date/Time Provider Initiated Documentation: 03/28/21 17:50 . Limitations to Documentation: no limitations . Information obtained by: patient and RN notes reviewed . History of Present Illness 61 year old M presents to the emergency department with the chief complaint of neck pain, described as moderate and similar to prior episodes, with intensity rated at 6. Quality is described as aching, and is localized to the neck. Patient reports no radiation. Patient started experiencing this week(s) and it has been constant. Immobilization improves symptom(s), Movement worsens symptoms . Patient notes no other symptoms.. Related Data Home Medications Medication Instructions Recorded Confirmed Lantus U-100 Insulin 51 unit SQ HS 01/12/13 03/28/21 acetaminophen [Tylenol] 650 mg PO PRN PRN 01/12/13 03/28/21 metformin [Glucophage] 1,000 mg PO BID 01/12/13 03/28/21 simvastatin 40 mg PO DAILY 03/03/15 03/28/21 metoprolol tartrate 50 mg PO BID 09/19/15 03/28/21 lisinopril 40 mg PO DAILY 02/01/16 03/28/21 torsemide 5 mg PO DAILY 02/07/16 03/28/21 felodipine 5 mg PO DAILY 03/26/17 03/28/21 glipizide 10 mg PO DAILY 03/26/17 03/28/21 dofetilide [Tikosyn] 500 mcg PO Q12H #180 tab-cap NS 07/17/17 03/28/21 spironolactone 12.5 mg PO DAILY tab-cap 07/17/17 03/28/21 Trulicity 0.75 mg SQ weekly 04/10/18 03/28/21 warfarin 5 mg tablet 5 mg PO DAILY 01/27/19 03/28/21 magnesium 250 mg PO DAILY 01/12/20 03/28/21 celecoxib 200 mg capsule 200 mg PO BID #30 cap 03/20/20 03/28/21 Previous Rx's Medication Instructions Recorded dofetilide [Tikosyn] 500 mcg PO Q12H #180 tab-cap NS 07/17/17 celecoxib 200 mg capsule 200 mg PO BID #30 cap 03/20/20 Allergies Allergy/AdvReac Type Severity Reaction Status Date / Time No Known Allergies Allergy Verified 03/28/21 17:42 General Stated Complaint: Nk/Back Pain EDIE: 4 Review of Systems Constitutional Constitutional: Reports as per HPI, Denies chills, Denies fatigue, Denies fever(s), Denies frequent falls and Denies headache(s) Eyes Eyes: Denies change in vision ENT Ears, Nose, Mouth, and Throat: Denies headache(s) Cardiovascular Cardiovascular: Denies chest pain, Denies dyspnea and Denies dyspnea on exertion Respiratory Respiratory: Denies cough, Denies dyspnea and Denies dyspnea on exertion Gastrointestinal Gastrointestinal: Denies abdominal pain, Denies change in bowel habits and Denies fecal incontinence Genitourinary Genitourinary: Reports as per HPI, Denies urinary hesitancy and Denies urinary incontinence Musculoskeletal Musculoskeletal: Reports as per HPI, Reports back pain, Denies muscle weakness, Denies numbness, Reports radiating pain into limb (with certain movements he gets pain in thumb) and Denies tingling Integumentary/Breasts Skin/Breast: Reports as per HPI and Denies rash Neurologic Neurologic: Reports as per HPI, Denies frequent falls, Denies headache(s), Denies localized weakness, Denies numbness, Denies radicular pain, Denies sensory deficit, Denies tingling and Denies paresthesias Endocrine Endocrine: Denies fatigue [facility] Medical History (Updated 03/28/21 @ 19:24 by SAM Lopez) Diabetes type 2, controlled Hernia, umbilical Hyperlipidemia Hypertension Obesity, Class III, BMI 40-49.9 (morbid obesity) Osteoarthritis Paroxysmal atrial fibrillation last episode in april of last year prior to starting Tikosyn Sleep apnea, obstructive Does not use device Surgical History Colonoscopy - MAC (10/14/16) eye History of cardiac radiofrequency ablation 2003, 2006 [facility] History of neck surgery Removal of bone spurs and fusion, APD 09/2018 Total replacement of hip right Family History Mother Diabetes Heart disease Father Heart disease Glaucoma Social History Smoking/Tobacco Use Status: Former Tobacco Use Quit Date: 09/01/90 Tobacco: How many years used: 13 Smoking risk assessment performed?: Yes Alcohol Intake: never Drug use: Never Household members: spouse Housing: house Current gender identity: male Do you feel safe at home: Yes Do you feel safe in your relationship?: Yes Exam Const General: cooperative, healthy appearing, uncomfortable, no acute distress, well developed and well groomed Nutritional Appearance: well nourished and overweight Orientation: alert and awake Eyes General: appearance normal, both eyes and all related structures Neck Neck: normal visual inspection, limited ROM (limited rotation secondary to pain), no lymphadenopathy, no meningeal signs, trachea midline, supple and no anterior neck swelling Resp Effort & Inspection: normal respiratory effort and able to speak in complete sentences Auscultation: clear to auscultation bilaterally, no rales, no rhonchi and no wheezes Cardio Rate: regular rate Rhythm: regular rhythm Heart Sounds: S1 normal and S2 normal Back/Spine/Pelvis Back: no CVA tenderness Cervical Spine: No normal cervical lordosis, No cervical ROM normal, cervical muscular tenderness (more on the right than the left), pain with cervical ROM, cervical spasm, cervical spinal tenderness (fairly diffuse pain) and No step off deformity Thoracic/Lumbar Spine: thoracic and lumbar spine normal to inspection, No thoracic spinal tenderness and No lumbar spinal tenderness Skin General skin exam: no rashes or lesions noted Neuro General: patient alert and patient awake Cognition: normal cognition Speech: speech normal Gait: normal gait Motor: muscle tone normal throughout, strength 5/5 throughout, no movement abnormalities noted and no fasciculations Sensory Exam: no sensory deficits noted (no saddle paresthesias) DTR's: Rt Biceps: 2+, Lt Biceps: 2+, Rt Brachioradialis: 2+ and Lt Brachioradialis: 2+ Extrem General: normal to inspection, full ROM, capillary refill normal, no joint enlargement, no pedal edema, no calf tenderness and normal gait Psych Appearance: grossly normal and well kempt Mental Status: mental status grossly normal Speech and Movement: speech and movement normal Course Vital Signs Vital signs: Vital Signs Temperature 36.7 C 03/28/21 17:36 Pulse 73 03/28/21 17:36 Respiratory Rate 16 03/28/21 17:36 Blood Pressure 171/81 H 03/28/21 17:36 Pulse Oximetry 96 03/28/21 17:36 Temperature 36.7 C 03/28/21 17:36 Temperature Source Temporal Artery Scan 03/28/21 17:36 Pulse 73 03/28/21 17:36 Respiratory Rate 16 03/28/21 17:36 Respiratory Effort Non-Labored 03/28/21 17:41 Blood Pressure 171/81 H 03/28/21 17:36 Blood Pressure Position Sitting 03/28/21 17:36 Pulse Oximetry 96 03/28/21 17:36 Oxygen Delivery Method Room Air 03/28/21 17:36 Oxygen Flow Rate 0 03/28/21 17:36 Pain Level 6 03/28/21 17:43
[2021-03-28] MEDS: Acetaminophen 325 MG TAB 650 MG PO (18:25)
[2021-03-28] MEDS: Lidocaine 5% Patch 1 PATCH TP (18:26)
--- NOTE | 2021-03-28 18:53 | DI.RAD_ITS ---
Exam(s) XR CERVICAL SPINE COMP 4-5V EXAM: XR CERVICAL SPINE COMP 4-5V CLINICAL HISTORY: diffuse pain, 2 year s/p fusion. TECHNIQUE: 2D digital imaging was performed. COMPARISON: No exams were available for comparison FINDINGS: No evidence of fracture or listhesis. There is C5-6 fusion. The hardware within the vertebral devon s at this level appears intact there is significant disc space narrowing 1 level above (C4-5) and 1 l evel below (C6-7). Also space narrowing at C7-T1 level. There is some degenerative change in the fa cet joints. No cervical ribs. Some straightening of the cervical spine is noted IMPRESSION: Multilevel degenerative disc disease. Also fusion at C5-6 level. DATA REPOSITORY: RADIATION DOSE DELIVERED:
--- NOTE | 2021-03-28 19:09 | DI.VRAD_ITS ---
PROCEDURE INFORMATION: Exam: XR Spine; Cervical Exam date and time: 03/28/2021 6:17 PM Age: 61 years old Clinical indication: Pain; Pain: S/P fusion; Prior surgery; Surgery date: 6+ months TECHNIQUE: Imaging protocol: XR of the spine. Exam focused on the cervical spine. Views: 1 view. COMPARISON: CR XR cervical spine comp 4-5V 06/15/2018 12:28 PM FINDINGS: Bones/joints: Straightening of the normal cervical lordosis. CS vertebral body heights are maintained. Fusion at C5-C6. Hardware appears intact. Mild multilevel degenerative disc disease and facet arthropathy. Soft tissues: Normal. IMPRESSION: Mild multilevel degenerative spondylopathy. Dictated and Authenticated by: Mark Beard MD. Ordering:KT Quintana MD
[2021-03-28] MEDS: Methocarbamol 750 MG TAB 1500 MG PO (20:19)
== END 2021-03-28 20:19 | disposition home or self-care (01) ==
PROVIDERS: Emergency Provider Physician Assistant; PCP Family Medicine
DX: M54.2 Cervicalgia (principal); Z98.1 Arthrodesis status
CPT/HCPCS: 99283; 72050

== ENCOUNTER 2021-04-09 13:55 | Outpatient (CLI) | payer BC, SELFPAY ==
--- NOTE | 2021-04-09 10:15 | DI.RAD_ITS ---
Exam(s) XR KNEE RT 2V AP,LAT EXAM: XR KNEE RT 2V AP,LAT INDICATION: TKA. COMPARISON: CR XR KNEE RT 2V AP,LAT from 01/17/2020 TECHNIQUE: 2D digital imaging was performed. FINDINGS: There has been no change in the total knee prosthesis or appearance of the surrounding bone. DATA REPOSITORY: RADIATION DOSE DELIVERED:
== END 2021-04-09 13:56 | disposition home or self-care (01) ==
LOC: DIORS 13:56
PROVIDERS: PCP Family Medicine; Referring Provider Family Medicine; Visit Provider Physician Assistant Surgical
DX: Z96.651 Presence of right artificial knee joint (principal)
CPT/HCPCS: 73560

== ENCOUNTER 2021-04-18 20:06 | Outpatient (REF) | payer BC, SELFPAY ==
[2021-04-18 20:05] LABS: HCT 49.1 % (40.0-50.0); MCH 25.3 pg (27.0-33.0); MCHC 30.5 % (32.0-36.0); MCV 82.8 fL (80-95); MPV 11.6 fL (8.0-11.0); Platelet Count 305 10^3/uL (130-400); RBC 5.93 10^6/uL (4.36-5.78); RDW 17.1 % (11.8-14.1); RDW-SD 50.7 fL; WBC 9.02 10^3/uL (4.4-10.8)
[2021-04-18 20:24] LABS: Iron 40 ug/dL (65-175); Total Iron Binding Capacity 427 ug/dL (250-450); Transferrin Sat 9 % (20-55)
[2021-04-18 20:29] LABS: ALT 17 U/L (16-63); AST 14 U/L (15-37); Albumin 3.8 g/dL (3.4-5.0); Alkaline Phosphatase 77 U/L (46-116); Anion Gap 10.1 mmol/L (3-11); BUN 22 mg/dL (7-18); Bilirubin, Total 0.5 mg/dL (0.2-1.0); CO2 26.9 mmol/L (21.0-32.0); CREATININE 0.6 mg/dL (0.70-1.30); Calcium 9.1 mg/dL (8.5-10.1); Calculated LDL 158 mg/dL (<100); Chloride 102 mmol/L (98-107); Cholesterol 224 mg/dL (<200); Glucose 72 mg/dL (74-106); HDL Cholesterol 42 mg/dL (40-60); Potassium 4.4 mmol/L (3.5-5.1); Sodium 139 mmol/L (136-145); Total Protein 7.5 g/dL (6.4-8.2); Triglyceride 122 mg/dL (<150)
[2021-04-18 21:02] LABS: Magnesium 2.1 mg/dL (1.8-2.4); Vitamin B12 351 pg/mL (193-986)
== END 2021-04-18 20:07 | disposition home or self-care (01) ==
LOC: NCHCN 20:06
PROVIDERS: PCP Family Medicine; Visit Provider Family Medicine
DX: E83.42 Hypomagnesemia (principal); D64.9 Anemia, unspecified; E11.9 Type 2 diabetes mellitus without complications; Z79.4 Long term (current) use of insulin; Z00.00 Encounter for general adult medical examination without abnormal findings; Z13.220 Encounter for screening for lipoid disorders
CPT/HCPCS: 80053; 80061; 85027; 82607; 83540; 83550; 83735

== ENCOUNTER 2022-02-08 18:43 | Outpatient (REF) | payer BC, SELFPAY ==
[2022-02-08 20:21] LABS: Anion Gap 12.9 mmol/L (3-11); BUN 16 mg/dL (7-18); CO2 24.1 mmol/L (21.0-32.0); CREATININE 0.6 mg/dL (0.70-1.30); Calcium 9.1 mg/dL (8.5-10.1); Calculated LDL 172 mg/dL (<100); Chloride 99 mmol/L (98-107); Cholesterol 234 mg/dL (<200); Glucose 80 mg/dL (74-106); HDL Cholesterol 44 mg/dL (40-60); Magnesium 2.1 mg/dL (1.8-2.4); Potassium 4.5 mmol/L (3.5-5.1); Sodium 136 mmol/L (136-145); Triglyceride 94 mg/dL (<150)
== END 2022-02-08 18:44 | disposition home or self-care (01) ==
LOC: NCHCN 18:43
PROVIDERS: PCP Family Medicine; Visit Provider Family Medicine
DX: I10 Essential (primary) hypertension (principal); E78.5 Hyperlipidemia, unspecified; E83.42 Hypomagnesemia
CPT/HCPCS: 80048; 80061; 83735

== ENCOUNTER 2022-04-22 10:05 | Outpatient (CLI) | payer BC, SELFPAY ==
--- NOTE | 2022-04-22 10:00 | DI.RAD_ITS ---
Exam(s) XR KNEE RT 2V AP,LAT EXAM: XR KNEE RT 2V AP,LAT CLINICAL HISTORY: annual f/u R TKA. TECHNIQUE: 2D digital imaging was performed. Two images were obtained. AP and lateral views were ob tained. COMPARISON: CR XR KNEE RT 2V AP,LAT from 04/09/2021 FINDINGS: BONES: There are stable post operative changes present. No fracture or dislocation. JOINTS: The orthopedic hardware is in good position. SOFT TISSUE: Atherosclerosis is present. IMPRESSION: Stable postoperative changes. DATA REPOSITORY: RADIATION DOSE DELIVERED:
--- NOTE | 2022-04-22 10:00 | DI.RAD_ITS ---
Exam(s) XR HIP LT COMPLETE AP PELVIS EXAM: XR HIP LT COMPLETE AP PELVIS CLINICAL HISTORY: LEFT HIP PAIN. TECHNIQUE: 2D digital imaging was performed of the left hip. Two views were obtained. AP pelvis an d lateral left hip views were obtained. COMPARISON: No exams were available for comparison FINDINGS: BONES: No acute fracture is present. No bony destructive lesion is seen. JOINTS: No dislocation present. The patient has a right total hip replacement which appears in good p osition. In the left hip, there is mild joint space narrowing and acetabular hypertrophy. SOFT TISSUE: Atherosclerosis is present. IMPRESSION: Mild degenerative changes of the left hip. DATA REPOSITORY: RADIATION DOSE DELIVERED:
== END 2022-04-22 10:06 | disposition home or self-care (01) ==
PROVIDERS: PCP Family Medicine; Visit Provider Family Medicine
DX: M25.552 Pain in left hip (principal); M16.12 Unilateral primary osteoarthritis, left hip; Z96.651 Presence of right artificial knee joint; Z47.1 Aftercare following joint replacement surgery; Z96.641 Presence of right artificial hip joint
CPT/HCPCS: 73502; 73560

== ENCOUNTER 2023-02-10 15:43 | Outpatient (CLI) | payer MEDICARE, SELFPAY ==
--- NOTE | 2023-02-10 15:56 | DI.RAD_ITS ---
Exam(s) XR HIP RT AP LAT ONLY EXAM: XR HIP RT AP LAT ONLY CLINICAL HISTORY: pain/popping. TECHNIQUE: 2D digital imaging was performed. COMPARISON: CR XR HIP LT COMPLETE AP PELVIS from 04/22/2022 FINDINGS: Two views Position and alignment of the components of the right hip prosthesis remains satisfactory. No fractu re or loosening evident. IMPRESSION: Stable satisfactory appearance of right hip prosthesis. DATA REPOSITORY: RADIATION DOSE DELIVERED:
== END 2023-02-10 15:44 | disposition home or self-care (01) ==
LOC: DIORS 15:43
PROVIDERS: PCP Family Medicine; Referring Provider Family Medicine; Visit Provider Student in an Organized Health Care Education/Training Program
DX: M25.852 Other specified joint disorders, left hip (principal); M70.61 Trochanteric bursitis, right hip
CPT/HCPCS: 99213; 73502

== ENCOUNTER → 2023-04-08 02:14 | Outpatient (CLI) | payer MEDICARE, SELFPAY ==
--- NOTE | 2023-04-08 | DI.US_ITS ---
Exam(s) US AAA SCREENING EXAM: US AAA SCREENING CLINICAL HISTORY: FORMER SMOKER, 8 PACK YEARS, PHYSICAL EXAM ROUTINE, Z00.00 AAA SCREENING COMPARISON: CT CTA THORAX from 03/25/2017 FINDINGS: Abdominal Aorta: Proximal: 1.9 x 2.0 cm Mid: 2.1 x 1.8 cm Distal: 2.0 x 2.0 cm Iliac's: Right: 1.3 x 1.3 cm Left: 1.3 x 1.3 cm No significant atherosclerotic disease is seen. IMPRESSION: No evidence of abdominal aortic aneurysm. DATA REPOSITORY:
== END ==
PROVIDERS: PCP Family Medicine; Visit Provider Family Medicine
DX: Z13.6 Encounter for screening for cardiovascular disorders (principal); Z87.891 Personal history of nicotine dependence
CPT/HCPCS: 76706

== ENCOUNTER → 2023-05-12 14:14 | Outpatient (BNVA) | payer MEDICARE, SELFPAY | PROVIDERS: PCP Family Medicine; Referring Provider Family Medicine; Visit Provider Student in an Organized Health Care Education/Training Program | DX: M70.61 Trochanteric bursitis, right hip (principal); Z96.641 Presence of right artificial hip joint | CPT/HCPCS: 99213 ==

== ENCOUNTER 2023-10-14 11:56 | Outpatient (REF) | payer MEDICARE, SELFPAY ==
[2023-10-14 17:20] LABS: Hemoglobin A1C 6.6 % (<5.7)
== END 2023-10-14 11:57 | disposition home or self-care (01) ==
LOC: NCHCN 11:56
PROVIDERS: PCP Family Medicine; Visit Provider Family Medicine
DX: E11.9 Type 2 diabetes mellitus without complications (principal)
CPT/HCPCS: 83036

== ENCOUNTER 2024-03-19 15:19 | Outpatient (REF) | payer MEDICARE, SELFPAY ==
[2024-03-19 17:10] LABS: COMMENT (LAB VIEW ONLY) 116.04 mg/dL; Microalb ug/mg Crea 10.9 ug/mg Cr
== END 2024-03-19 15:20 | disposition home or self-care (01) ==
LOC: NCHCN 15:19
PROVIDERS: PCP Family Medicine; Visit Provider Student in an Organized Health Care Education/Training Program
DX: E11.9 Type 2 diabetes mellitus without complications (principal)
CPT/HCPCS: 82043; 82570

== ENCOUNTER 2024-06-15 11:25 | Emergency (ER) | payer MEDICARE, SELFPAY ==
[2024-06-15 11:27] VITALS: BP 180/90; PULSE 65; RESP 12; TEMP 36.7; O2SAT 94
--- NOTE | 2024-06-15 11:42 | ED.GENADUL_ITS ---
Discharge Plan Disposition Patient Disposition: Home Condition: Stable Discharge Details Clinical Impression: Tendinitis of right elbow Primary Care Provider: Jason Hoffmann ED Provider: Atif Whitman Home Meds and New Rx's Prescriptions: Continued Invokana 300 mg tablet 300 mg PO DAILY dofetilide 500 mcg capsule 500 mcg PO Q12H sildenafil [Viagra] 50 mg tablet 50 mg PO DAILY PRN Rx Instructions: administer 30 minutes to 4 hours before activity rosuvastatin 40 mg tablet 40 mg PO DAILY celecoxib [Celebrex] 200 mg capsule 200 mg PO BID felodipine 2.5 mg tablet extended release 24 hr 2.5 mg PO DAILY Eliquis 5 mg tablet 5 mg PO BID spironolactone 25 MG tablet 12.5 mg PO DAILY acetaminophen [Tylenol] 325 MG tablet 650 mg PO PRN PRN insulin glargine [Lantus U-100 Insulin] 100 UNIT/1 ML solution 38 unit SQ HS Patient Comments: Pt reports per DSU, he took 1/2 dose. metformin [Glucophage] 1,000 MG tablet 1,000 mg PO BID metoprolol tartrate 100 MG tablet 50 mg PO BID lisinopril 40 MG tablet 40 mg PO DAILY glipizide 10 MG tablet 10 mg PO DAILY magnesium 250 mg Tablet 250 mg PO DAILY liraglutide [Victoza 2-Boone] 0.6 mg/0.1 mL (18 mg/3 mL) pen injector 0.6 mg subcut DAILY Discharge Instructions Instructions: Tendinopathy, Overuse Injuries Additional Instructions: You were seen in the emergency department for the tendinitis of your right elbow from overuse yesterday digging a trench. Please obtain an [id number] neoprene sleeve to aid in compression of the elbow, please rest, ice, compress and elevate the elbow, alternate heat and as well if it feels relief. Please use therapeutic dosing of Tylenol (acetamenophen) & Advil (ibuprofen) in an alternating fashion as follows: Take 1000mg of Tylenol every 6 hours without missing doses- that is 4 times per day. [place] in between the Tylenol dosings, take 400-600mg of Advil also on a 6 hour schedule, that is also 4 times per day. The daily maximum dosing of Tylenol is 4000mg, and the daily maximum dosing of Advil is 2400mg. This is safe to do for weeks. Please note that some common cold medications & prescription pain medications may contain acetamenophen and you need to read OTC drug labels and factor that in to maximum daily dosings. Apply topical Voltaren gel to the area 2-3 times per day. I am providing you with work restrictions to lift no less than 5 pounds for the next 3 days. Follow-up with orthopedics for persistent pain lasting past 2 weeks. Stand Alone Forms: Work Release Referrals: [facility] [Provider Group] Jason Hoffmann [Primary Care Provider] - Discharge Data Discharge Date/Time-TO BE ENTERED AT DEPARTURE: 06/15/24 12:04 HPI General Date/Time Provider Initiated Documentation: 06/15/24 11:42 . HPI Narrative: 64 year-old male presents to ED today by POV/ambulating with his with a chief complaint of overuse injury to R elbow while digging a trench yesterday, denies trauma. Quality described as soreness in the medial and lateral elbow with mild radiation into the bicep, denies trauma, has full range of motion except for slight limited to pain at full extension of the elbow, no radiation to numbness/tingling, skin changes, swelling, redness, bruising, shoulder pain, neck pain. Severity is described as mild to moderate. Palliating factors include nothing specific, has improved over 1 day. Provoking factors include overuse, digging a trench, extension. Events leading up to the incident/Associated Symptoms: Patient seeking lifting restrictions for his regular job in [employer]. Patient is anticoagulated. Related Data Home Medications ?Medication ?Instructions ?Recorded ?Confirmed acetaminophen 325 mg tablet 650 mg PO PRN PRN 01/12/13 06/15/24 (Tylenol) insulin glargine 100 unit/mL 38 unit SQ HS 01/12/13 06/15/24 subcutaneous solution (Lantus U-100 Insulin) metformin 1,000 mg tablet 1,000 mg PO BID 01/12/13 06/15/24 (Glucophage) metoprolol tartrate 100 mg tablet 50 mg PO BID atrial fibrillation 09/19/15 06/15/24 lisinopril 40 mg tablet 40 mg PO DAILY 02/01/16 06/15/24 glipizide 10 mg tablet 10 mg PO DAILY 03/26/17 06/15/24 spironolactone 25 mg tablet 12.5 mg PO DAILY 07/17/17 06/15/24 magnesium 250 mg tablet 250 mg PO DAILY 01/12/20 06/15/24 apixaban 5 mg tablet (Eliquis) 5 mg PO BID 04/22/22 06/15/24 canagliflozin 300 mg tablet 300 mg PO DAILY 05/12/23 06/15/24 (Invokana) celecoxib 200 mg capsule (Celebrex) 200 mg PO BID 05/12/23 06/15/24 dofetilide 500 mcg capsule 500 mcg PO Q12H 05/12/23 06/15/24 felodipine 2.5 mg tablet,extended 2.5 mg PO DAILY 05/12/23 06/15/24 release 24 hr rosuvastatin 40 mg tablet 40 mg PO DAILY 05/12/23 06/15/24 sildenafil 50 mg tablet (Viagra) 50 mg PO DAILY PRN 05/12/23 06/15/24 liraglutide 0.6 mg/0.1 mL (18 mg/3 0.6 mg subcut DAILY 06/15/24 06/15/24 mL) subcutaneous pen injector (Victoza 2-Boone) Allergies Allergy/AdvReac Type Severity Reaction Status Date / Time No Known Allergies Allergy Verified 06/15/24 11:32 General Stated Complaint: Orthopedic EDIE: 4 Review of Systems All systems reviewed & are unremarkable except as noted in HPI and below Exam Narrative Exam Narrative: GENERAL APPEARANCE: Well-nourished, non-toxic, awake and alert, atraumatic, no acute distress. SKIN: Warm, pink, dry, intact, without rashes/lesions/ulcerations. HEAD: Normocephalic, atraumatic, normal hair distribution for gender/age. EYES: Normal conjunctiva, no exudates on lids/lashes. ENT: Nares patent, no circumoral cyanosis, no facial swelling NECK: Supple, trachea midline, painless cervical ROM. LUNGS/CHEST: Non-labored respirations, normal A/P diameter, symmetrical expansion, no chest wall deformity HEART (CV/PV): Regular rate, no peripheral edema, no JVD. ABDOMEN: Soft, non-distended, no guarding. 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 Motor: No focal weakness - strength 5/5 in bilateral UEs and LEs, proximal and distal, symmetric. Sensory: sensation intact to light touch globally. Gait normal: patient ambulated without ataxia into ED room. PSYCH: euthymic, cooperative, pleasant, appropriate speech Course Vital Signs Vital signs: Vital Signs Temperature 36.7 C 06/15/24 11:27 Pulse 65 06/15/24 11:27 Respiratory Rate 12 06/15/24 11:27 Blood Pressure 180/90 H 06/15/24 11:27 Pulse Oximetry 94 06/15/24 11:27 Temperature 36.7 C 06/15/24 11:27 Temperature Source Oral 06/15/24 11:27 Pulse 65 06/15/24 11:27 Respiratory Rate 12 06/15/24 11:27 Blood Pressure 180/90 H 06/15/24 11:27 Blood Pressure Position Sitting 06/15/24 11:27 Pulse Oximetry 94 06/15/24 11:27 Oxygen Delivery Method Room Air 06/15/24 11:27 Oxygen Flow Rate 0 06/15/24 11:27 Pain Level 7 06/15/24 11:27 Medical Decision Making This dictation utilizes [id number] dictation software and may contain unedited grammatical errors. 64 year-old male presents to ED today by POV/ambulating with his with a chief complaint of overuse injury to R elbow while digging a trench yesterday, denies trauma. Quality described as soreness in the medial and lateral elbow with mild radiation into the bicep, denies trauma, has full range of motion except for slight limited to pain at full extension of the elbow, no radiation to numbness/tingling, skin changes, swelling, redness, bruising, shoulder pain, neck pain. Severity is described as mild to moderate. Palliating factors include nothing specific, has improved over 1 day. Provoking factors include overuse, digging a trench, extension. 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 Patients' medical history: Atrial fibrillation, hypertension, diabetes mellitus, history of right rotator cuff arthropathy. Family and social history: Noncontributory. Pertinent exam findings / vital signs include mild tenderness in the [place] or teres, intact biceps insertion, no bony tenderness at the right elbow, slight limited to extension, right radial pulse 2+, sensation intact in the hand, interior decorator strength 5/5. Differential / pathologies of concern include tendintis, strain, sprain, not biceps rupture, not fracture. Diagnostic studies of: -none- do not suspect XR would be useful, no trauma or likely bony pathology, do not suspect any ligamentous avulsion. Interventions of: -Work note, recommend elbow compression sleeve- alternating heat & ice, and APAP. 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 Findings not consistent with fracture, ligamentous injury, large erythematous bursitis. Disposition of tendinitis of right elbow. Patient verbalized understanding of the plan and return to ED criteria and engaged in shared decision making. Medical Records Medical records reviewed: Yes I reviewed the patient's medical records. Quality:SDOH Health Related Social Needs: No Data to Display PFSH All Active Problems (Updated 06/15/24 @ 11:51 by SAM Jim) Tendinitis of right elbow (Acute) Trochanteric bursitis of right hip (Acute) Trochanteric bursitis of left hip (Acute) Femoroacetabular impingement of left hip (Acute) Acute neck pain (Acute) Bursitis of right shoulder (Acute) Impingement syndrome of right shoulder (Acute) Traumatic tear of right rotator cuff (Acute) Rupture of right proximal biceps tendon (Acute ~10/2020) Status post total knee replacement, right (Acute 01/17/20) Atrial fibrillation with rapid ventricular response (Acute 03/03/15) Anticoagulated on Coumadin (Chronic) Lower extremity edema (Chronic) Morbid obesity (Chronic) GAURAV (obstructive sleep apnea) (Chronic) IDDM (insulin dependent diabetes mellitus) (Chronic) Uncontrolled hypertension (Acute 03/03/15) Hyperlipidemia (Chronic) H/O surgical procedure (Chronic) a. R THR b. FB right eye 1977 repaired, preserving vision c. 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 (Acute 11/28/17) Essential hypertension (Acute 09/22/15) Medical History (Updated 06/15/24 @ 11:51 by SAM Jim) Hypertension Paroxysmal atrial fibrillation last episode in april of last year prior to starting Tikosyn Osteoarthritis Hyperlipidemia Hernia, umbilical Obesity, Class III, BMI 40-49.9 (morbid obesity) Sleep apnea, obstructive Does not use device Diabetes type 2, controlled Surgical History History of cardiac radiofrequency ablation 2003, 2006 [facility] History of neck surgery Removal of bone spurs and fusion, APD 09/2018 eye Total replacement of hip right Colonoscopy - MAC (10/14/16) Family History Mother Diabetes Heart disease Father Heart disease Glaucoma Social History Smoking/Tobacco Use Status: Former Tobacco Use Quit Date: 09/01/90 Tobacco: How many years used: 13 Smoking risk assessment performed?: Yes Alcohol Intake: never Drug use: Never Household members: spouse Housing: house Current gender identity: male Do you feel safe at home: Yes Do you feel safe in your relationship?: Yes
== END 2024-06-15 12:04 | disposition home or self-care (01) ==
LOC: ER 12:09
PROVIDERS: Emergency Provider Physician Assistant; PCP Family Medicine
DX: M70.821 Other soft tissue disorders related to use, overuse and pressure, right upper arm (principal); I10 Essential (primary) hypertension; I48.0 Paroxysmal atrial fibrillation; E78.5 Hyperlipidemia, unspecified; E11.9 Type 2 diabetes mellitus without complications; Z79.01 Long term (current) use of anticoagulants; Z79.4 Long term (current) use of insulin; Z79.84 Long term (current) use of oral hypoglycemic drugs; Z87.891 Personal history of nicotine dependence; Y93.H1 Activity, digging, shoveling and raking
CPT/HCPCS: 99283

== ENCOUNTER 2024-06-23 09:01 | Emergency (ER) | payer MEDICARE, SELFPAY ==
[2024-06-23] VITALS (54 sets, daily range): BP systolic 152–193; BP diastolic 64–103; PULSE 58–87; RESP 7–26; TEMP 36.8; O2SAT 88–96; BMI 38.7
--- NOTE | 2024-06-23 09:45 | DI.RAD_ITS ---
Exam(s) XR FEMUR RT EXAM: XR FEMUR RT CLINICAL HISTORY: pain. TECHNIQUE: 2D digital imaging was performed. COMPARISON: No exams were available for comparison FINDINGS: 3 views There is discontinuity of the neck of the prosthesis. The head of the prosthesis remains within the acetabular cup. There are no fractures in the femur. A right knee prosthesis is noted which appears satisfactory. T here are no femur fractures. IMPRESSION: The right hip prosthesis has, part at the junction of the neck and head of the prosthesis. The femor al head component remains within the acetabular cup. There is mild lateral displacement. The cross- table lateral view does not reveal displacement in the AP plane. DATA REPOSITORY: RADIATION DOSE DELIVERED:
[2024-06-23 10:02] LABS: Abs Immature Grans 0.07 10^3/uL (0.0-0.06); Absolute Basophil Count 0.09 10^3/uL (0.0-0.2); Absolute Eosinophil Count 0.27 10^3/uL (0.0-0.7); Absolute Lymphocyte Count 1.31 10^3/uL (1.2-3.4); Absolute Monocyte Count 0.92 10^3/uL (0.1-0.8); Absolute Neutrophil Count 7.61 10^3/uL (1.2-6.7); Basophils % 0.9 %; Eosinophils % 2.6 %; HCT 50.1 % (40.0-50.0); HGB 15.8 g/dL (13.5-17.5); Immature Grans % 0.7 %; Lymphocytes % 12.8 %; MCH 27.3 pg (27.0-33.0); MCHC 31.5 % (32.0-36.0); MCV 87 fL (80-95); MPV 10.2 fL (8.0-11.0); Platelet Count 233 10^3/uL (130-400); RBC 5.78 10^6/uL (4.36-5.78); RDW 14.5 % (11.8-14.1); WBC 10.27 10^3/uL (4.4-10.8)
[2024-06-23] MEDS: HYDROmorphone 2 MG/ML SYR 1 MG IVP ×2 (10:08→12:14)
[2024-06-23 10:23] LABS: ALT 20 U/L (16-63); AST 20 U/L (15-37); Albumin 3.7 g/dL (3.4-5.0); Alkaline Phosphatase 87 U/L (46-116); Anion Gap 8.3 mmol/L (3-11); BUN 16 mg/dL (7-18); Bilirubin, Total 0.57 mg/dL (0.2-1.0); CO2 28.7 mmol/L (21.0-32.0); CREATININE 0.8 mg/dL (0.70-1.30); Calcium 9.4 mg/dL (8.5-10.1); Chloride 101 mmol/L (98-107); Estimated GFR 97.61 (mL/min/1.73m2); Glucose 134 mg/dL (74-106); Potassium 4.5 mmol/L (3.5-5.1); Sodium 138 mmol/L (136-145); Total Protein 7.9 g/dL (6.4-8.2)
--- NOTE | 2024-06-23 10:26 | W.ED.GENAD ---
Discharge Plan Disposition Patient Disposition: Transfer-Acute Inpatient Care Specific Acute Inpt Facility: [facility] Condition: Serious Discharge Details Clinical Impression: Broken internal right hip prosthesis Primary Care Provider: Hany Costa ED Provider: Lance Kaiser Home Meds and New Rx's Prescriptions: No Action Invokana 300 mg tablet 300 mg PO DAILY dofetilide 500 mcg capsule 500 mcg PO Q12H sildenafil [Viagra] 50 mg tablet 50 mg PO DAILY PRN Rx Instructions: administer 30 minutes to 4 hours before activity rosuvastatin 40 mg tablet 40 mg PO DAILY celecoxib [Celebrex] 200 mg capsule 200 mg PO BID felodipine 2.5 mg tablet extended release 24 hr 2.5 mg PO DAILY Eliquis 5 mg tablet 5 mg PO BID spironolactone 25 MG tablet 12.5 mg PO DAILY acetaminophen [Tylenol] 325 MG tablet 650 mg PO PRN PRN insulin glargine [Lantus U-100 Insulin] 100 UNIT/1 ML solution 38 unit SQ HS Patient Comments: Pt reports per DSU, he took 1/2 dose. metformin [Glucophage] 1,000 MG tablet 1,000 mg PO BID metoprolol tartrate 100 MG tablet 50 mg PO BID lisinopril 40 MG tablet 40 mg PO DAILY glipizide 10 MG tablet 10 mg PO DAILY magnesium 250 mg Tablet 250 mg PO DAILY liraglutide [Victoza 2-Boone] 0.6 mg/0.1 mL (18 mg/3 mL) pen injector 0.6 mg subcut DAILY HPI General Mode of arrival: EMS. Date/Time Provider Initiated Documentation: 06/23/24 09:56. Limitations to Documentation: no limitations. Information obtained by: patient. HPI Narrative: 64-year-old male presents with chief complaint of right hip pain. Patient notes he was ambulating and turning when he felt a sudden pop in his hip around 845 this morning. He was then not able to bear weight on the leg. Pain is severe. No associated numbness or tingling. Related Data Home Medications ?Medication ?Instructions ?Recorded ?Confirmed acetaminophen 325 mg tablet 650 mg PO PRN PRN 01/12/13 06/23/24 (Tylenol) insulin glargine 100 unit/mL 38 unit SQ HS 01/12/13 06/23/24 subcutaneous solution (Lantus U-100 Insulin) metformin 1,000 mg tablet 1,000 mg PO BID 05/14/13 10/23/24 (Glucophage) metoprolol tartrate 100 mg tablet 50 mg PO BID atrial fibrillation 09/19/15 06/23/24 lisinopril 40 mg tablet 40 mg PO DAILY 02/01/16 06/23/24 glipizide 10 mg tablet 10 mg PO DAILY 03/26/17 06/23/24 spironolactone 25 mg tablet 12.5 mg PO DAILY 07/17/17 06/23/24 magnesium 250 mg tablet 250 mg PO DAILY 01/12/20 06/23/24 apixaban 5 mg tablet (Eliquis) 5 mg PO BID 04/22/22 06/23/24 canagliflozin 300 mg tablet 300 mg PO DAILY 05/12/23 06/23/24 (Invokana) celecoxib 200 mg capsule (Celebrex) 200 mg PO BID 05/12/23 06/23/24 dofetilide 500 mcg capsule 500 mcg PO Q12H 05/12/23 06/23/24 felodipine 2.5 mg tablet,extended 2.5 mg PO DAILY 05/12/23 06/23/24 release 24 hr rosuvastatin 40 mg tablet 40 mg PO DAILY 05/12/23 06/23/24 sildenafil 50 mg tablet (Viagra) 50 mg PO DAILY PRN 05/12/23 06/23/24 liraglutide 0.6 mg/0.1 mL (18 mg/3 0.6 mg subcut DAILY 06/15/24 06/23/24 mL) subcutaneous pen injector (Victoza 2-Boone) Allergies Allergy/AdvReac Type Severity Reaction Status Date / Time No Known Allergies Allergy Verified 06/23/24 08:59 General Stated Complaint: Orthopedic EDIE: 3 Review of Systems Musculoskeletal Musculoskeletal: Reports as per HPI Exam Const General: cooperative and no acute distress HENMT Mouth: moist mucous membranes Eyes Conjunctivae: normal conjunctivae Sclera: normal sclerae Resp Auscultation: clear to auscultation bilaterally, no rales, no rhonchi and no wheezes Cardio Rate: regular rate and not tachycardic Rhythm: regular rhythm GI Palpation: soft, not firm, no guarding, no masses, not rigid and nontender Skin General skin exam: no rashes or lesions noted Neuro General: patient alert, patient awake, patient oriented x3 and tone normal Extrem General: no edema Right lower extremity: hip/thigh (short and ext rotated) Details: tenderness Location: of the hip Location: laterally and foot Details: normal capillary refill, vascular exam Details: dorsalis pedis pulse present and motor-sensory exam Details: light-touch normal Course Vital Signs Vital signs: Vital Signs Temperature 36.8 C 06/23/24 09:00 Pulse 68 06/23/24 09:00 Respiratory Rate 16 06/23/24 09:00 Blood Pressure 178/83 H 06/23/24 09:00 Pulse Oximetry 94 06/23/24 09:00 Temperature 36.8 C 06/23/24 09:00 Temperature Source Temporal Artery Scan 06/23/24 09:00 Pulse 72 06/23/24 09:05 Respiratory Rate 16 06/23/24 09:00 Respiratory Effort Normal, Non-Labored 06/23/24 09:12 Blood Pressure 178/73 H 06/23/24 09:05 Blood Pressure Mean 112 06/23/24 09:05 Blood Pressure Position Sitting 06/23/24 09:00 Pulse Oximetry 93 06/23/24 09:10 Oxygen Delivery Method Room Air 06/23/24 09:00 Oxygen Flow Rate 0 06/23/24 09:00 Pain Level 10 06/23/24 10:08 Lab/Test Results Lab/Test Results: Laboratory Tests Range/Units 06/23/24 09:44 WBC (4.4-10.8) 10^3/uL 10.27 RBC (4.36-5.78) 10^6/uL 5.78 Hgb (13.5-17.5) g/dL 15.8 Hct (40.0-50.0) % 50.1 H MCV (80-95) fL 87 MCH (27.0-33.0) pg 27.3 MCHC (32.0-36.0) % 31.5 L RDW (11.8-14.1) % 14.5 H Plt Count (130-400) 10^3/uL 233 MPV (8.0-11.0) fL 10.2 Immature Gran % % 0.7 Neutrophils % % 74.0 Lymphocytes % % 12.8 Monocytes % % 9.0 Eosinophils % % 2.6 Basophils % % 0.9 Nucleated RBC % (0.0-0.3) % 0.0 Absolute Neutrophils (1.2-6.7) 10^3/uL 7.61 H Absolute Lymphocytes (1.2-3.4) 10^3/uL 1.31 Absolute Monocytes (0.1-0.8) 10^3/uL 0.92 H Absolute Eosinophils (0.0-0.7) 10^3/uL 0.27 Absolute Basophils (0.0-0.2) 10^3/uL 0.09 Sodium (136-145) mmol/L 138 Potassium (3.5-5.1) mmol/L 4.5 Chloride (98-107) mmol/L 101 Carbon Dioxide (21.0-32.0) mmol/L 28.7 Anion Gap (3-11) mmol/L 8.3 BUN (7-18) mg/dL 16 Creatinine (0.70-1.30) mg/dL 0.8 Est GFR (CKD-EPI 2020) (mL/min/1.73m2) 97.61 Glucose (74-106) mg/dL 134 H Calcium (8.5-10.1) mg/dL 9.4 Total Bilirubin (0.2-1.0) mg/dL 0.57 AST (15-37) U/L 20 ALT (16-63) U/L 20 Alkaline Phosphatase (46-116) U/L 87 Total Protein (6.4-8.2) g/dL 7.9 Albumin (3.4-5.0) g/dL 3.7 Medical Decision Making 1000?64-year-old male with tree of right total hip replacement 16 years ago, here with inability to bear weight after experiencing a popping sensation while ambulating and turning just prior to arrival. Patient has shortened and externally rotated right lower extremity with significant tenderness over right lateral hip. Concern for fracture versus dislocation. Last oral intake was this morning around 8 AM. Will give Dilaudid 1 mg IV for pain. 1035 --x-ray of the hip reviewed and interpreted by me: Prosthetic hardware failure. Plan to consult orthopedic surgery. -- I spoke with Dr. Woo, discussed ED presentation course, unfortunately we are unable to provide revision surgery here at [facility], he recommends transfer. [facility] [place] to [place]. Will contact [facility] transfer center to request transfer. 1445 -- I spoke with Dr. Peralta at [facility] orthopedics, discussed ED presentation and course, he will accept the patient in transfer. Plan to transfer to emergency department and Dr. Lucio ED attending is aware per transfer center. -- VAMP LINER to perform fascia iliaca block prior to transfer for pain control. Lab Data Lab results reviewed: Yes I reviewed the patient's lab results. Labs: Laboratory Tests Range/Units 06/23/24 09:44 WBC (4.4-10.8) 10^3/uL 10.27 RBC (4.36-5.78) 10^6/uL 5.78 Hgb (13.5-17.5) g/dL 15.8 Hct (40.0-50.0) % 50.1 H MCV (80-95) fL 87 MCH (27.0-33.0) pg 27.3 MCHC (32.0-36.0) % 31.5 L RDW (11.8-14.1) % 14.5 H Plt Count (130-400) 10^3/uL 233 MPV (8.0-11.0) fL 10.2 Immature Gran % % 0.7 Neutrophils % % 74.0 Lymphocytes % % 12.8 Monocytes % % 9.0 Eosinophils % % 2.6 Basophils % % 0.9 Nucleated RBC % (0.0-0.3) % 0.0 Absolute Neutrophils (1.2-6.7) 10^3/uL 7.61 H Absolute Lymphocytes (1.2-3.4) 10^3/uL 1.31 Absolute Monocytes (0.1-0.8) 10^3/uL 0.92 H Absolute Eosinophils (0.0-0.7) 10^3/uL 0.27 Absolute Basophils (0.0-0.2) 10^3/uL 0.09 Sodium (136-145) mmol/L 138 Potassium (3.5-5.1) mmol/L 4.5 Chloride (98-107) mmol/L 101 Carbon Dioxide (21.0-32.0) mmol/L 28.7 Anion Gap (3-11) mmol/L 8.3 BUN (7-18) mg/dL 16 Creatinine (0.70-1.30) mg/dL 0.8 Est GFR (CKD-EPI 2020) (mL/min/1.73m2) 97.61 Glucose (74-106) mg/dL 134 H Calcium (8.5-10.1) mg/dL 9.4 Total Bilirubin (0.2-1.0) mg/dL 0.57 AST (15-37) U/L 20 ALT (16-63) U/L 20 Alkaline Phosphatase (46-116) U/L 87 Total Protein (6.4-8.2) g/dL 7.9 Albumin (3.4-5.0) g/dL 3.7 Quality:SDKY Health Related Social Needs: No Data to Display PFSH All Active Problems (Updated 06/23/24 @ 14:48 by Lance Kaiser MD) Broken internal right hip prosthesis (Acute) Tendinitis of right elbow (Acute) Trochanteric bursitis of right hip (Acute) Trochanteric bursitis of left hip (Acute) Femoroacetabular impingement of left hip (Acute) Acute neck pain (Acute) Bursitis of right shoulder (Acute) Impingement syndrome of right shoulder (Acute) Traumatic tear of right rotator cuff (Acute) Rupture of right proximal biceps tendon (Acute ~10/2020) Status post total knee replacement, right (Acute 01/17/20) Atrial fibrillation with rapid ventricular response (Acute 03/03/15) Anticoagulated on Coumadin (Chronic) Lower extremity edema (Chronic) Morbid obesity (Chronic) GAURAV (obstructive sleep apnea) (Chronic) IDDM (insulin dependent diabetes mellitus) (Chronic) Uncontrolled hypertension (Acute 03/03/15) Hyperlipidemia (Chronic) H/O surgical procedure (Chronic) a. R THR b. FB right eye 1977 repaired, preserving vision c. 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/17) Essential hypertension (Acute 09/22/15) Medical History (Updated 06/23/24 @ 14:48 by Lance Kaiser MD) Hypertension Paroxysmal atrial fibrillation last episode in april of last year prior to starting Tikosyn Osteoarthritis Hyperlipidemia Hernia, umbilical Obesity, Class III, BMI 40-49.9 (morbid obesity) Sleep apnea, obstructive Does not use device Diabetes type 2, controlled Surgical History History of cardiac radiofrequency ablation 2003, 2006 [facility] History of neck surgery Removal of bone spurs and fusion, APD 09/2018 eye Total replacement of hip right Colonoscopy - MAC (10/14/16) Family History Mother Diabetes Heart disease Father Heart disease Glaucoma Social History Smoking/Tobacco Use Status: Former Tobacco Use Quit Date: 09/01/90 Tobacco: How many years used: 13 Smoking risk assessment performed?: Yes Alcohol Intake: never Drug use: Never Household members: spouse Housing: house Current gender identity: male Do you feel safe at home: Yes Do you feel safe in your relationship?: Yes
--- NOTE | 2024-06-23 16:03 | W.ANESNERVE ---
Nerve Block Single Injection Procedure Date and Time Date Performed: 06/23/24 Procedure Start: 15:40 Location Where Procedure Performed Procedure Location: Emergency Department Reason Performed: Acute Pain Management Pain Diagnosis: Hip Pain (right ) Requesting Provider: Atif Whitman Timeout Performed Timeout Performed: Yes Monitoring Used ECG, Blood Pressure, SpO2 and See EMR for corresponding vital signs Sterility Sterility: Hand Hygiene, Surgical Cap, Surgical Mask, Sterile Gloves, Sterile Drape/Sheet, Eye Protection and Chlorhexidine Sedation Given During Procedure Sedation Given (Indicate Dose Given): No Sedation given Patient Mental Status Patient Mental Status: Awake Nerve Block 1st Nerve Block: Laterality: Right Block Type: PANKAJ Ultrasound Image Saved?: Yes Needle / Catheter Used: 100mm SonoPlex II Local Anesthetic Bolus (Indicate Dose Given): Lidocaine used for local infiltration of skin, Injected in 3-5ml increments after negative blood aspiration, Bupivacaine 0.5% Dose:: 10ml and Exparel Dose:: 10ml Additives (Indicate Dose Given): None Ultrasound: Sterile probe cover and gel used Nerve Stimulator: Not Used Paresthesia: None Procedure Tolerated: No Complications and Patient tolerated well Procedure Outcome: Successful Performed By: Corey Drake Supervised By: Antonio Mario
--- NOTE | 2024-06-23 16:07 | ANES.PREOP_ITS ---
General Info Date of Service Date Performed: 06/23/24 Height: 5 ft 6 in Weight: 108.862 kg Body Mass Index (BMI): 38.7 Meds Allergies and Home Medications Allergies Allergy/AdvReac Type Severity Reaction Status Date / Time No Known Allergies Allergy Verified 06/23/24 08:59 Home Medication ?Medication ?Instructions ?Recorded acetaminophen 325 mg tablet 650 mg PO PRN PRN 01/12/13 (Tylenol) insulin glargine 100 unit/mL 38 unit SQ HS 01/12/13 subcutaneous solution (Lantus U-100 Insulin) metformin 1,000 mg tablet 1,000 mg PO BID 01/12/13 (Glucophage) metoprolol tartrate 100 mg tablet 50 mg PO BID atrial fibrillation 09/19/15 lisinopril 40 mg tablet 40 mg PO DAILY 02/01/16 glipizide 10 mg tablet 10 mg PO DAILY 03/26/17 spironolactone 25 mg tablet 12.5 mg PO DAILY 07/17/17 magnesium 250 mg tablet 250 mg PO DAILY 01/12/20 apixaban 5 mg tablet (Eliquis) 5 mg PO BID 04/22/22 canagliflozin 300 mg tablet 300 mg PO DAILY 05/12/23 (Invokana) celecoxib 200 mg capsule (Celebrex) 200 mg PO BID 05/12/23 dofetilide 500 mcg capsule 500 mcg PO Q12H 05/12/23 felodipine 2.5 mg tablet,extended 2.5 mg PO DAILY 05/12/23 release 24 hr rosuvastatin 40 mg tablet 40 mg PO DAILY 05/12/23 sildenafil 50 mg tablet (Viagra) 50 mg PO DAILY PRN 05/12/23 liraglutide 0.6 mg/0.1 mL (18 mg/3 0.6 mg subcut DAILY 06/15/24 mL) subcutaneous pen injector (Victoza 2-Boone) Current Visit Medications: Current Medications Generic Name Dose Route Start Last Admin Trade Name Freq PRN Reason Stop Dose Admin IV Miscellaneous Supplies 1 each 06/23/24 10:00 Iv Access-Emergency Dept IV DIRECTED VINCENT Sodium Chloride 0 ml 06/23/24 09:56 Normal Saline Flush 10 Ml Syr IVP PRN PRN Sodium Chloride 0 ml 06/23/24 20:00 Normal Saline Flush 10 Ml Syr IVP BID VINCENT Sodium Chloride 0 ml 06/23/24 09:56 Normal Saline 10 Ml Vial IJ DIRECTED PRN PFSH Active Problems Active Problems: Problem Status Onset Code Broken internal right hip prosthesis Acute T84.010A Tendinitis of right elbow Acute M77.8 Trochanteric bursitis of right hip Acute M70.61 Trochanteric bursitis of left hip Acute M70.62 Femoroacetabular impingement of left hip Acute M25.852 Acute neck pain Acute M54.2 Bursitis of right shoulder Acute M75.51 Impingement syndrome of right shoulder Acute M75.41 Traumatic tear of right rotator cuff Acute S46.011A Rupture of right proximal biceps tendon Acute ~10/2020 S46.211A Status post total knee replacement, right Acute 01/17/20 Z96.651 Atrial fibrillation with rapid ventricular response Acute 03/03/15 I48.91 Anticoagulated on Coumadin Chronic Z51.81, Z79.01 Lower extremity edema Chronic R60.0 Morbid obesity Chronic E66.01 GAURAV (obstructive sleep apnea) Chronic G47.33 IDDM (insulin dependent diabetes mellitus) Chronic E11.9, Z79.4 Uncontrolled hypertension Acute 03/03/15 I10 Hyperlipidemia Chronic E78.5 H/O surgical procedure Chronic Z98.89 Umbilical hernia without obstruction and without gangrene Acute 09/22/15 K42.9 Paroxysmal atrial fibrillation Acute 09/22/15 I48.0 Osteoarthritis of both hips Acute 09/22/15 M16.0 On continuous oral anticoagulation Acute 11/28/17 Z79.01 penitentiary current use of antiarrhythmic drug Acute 11/28/17 Z79.899 Essential hypertension Acute 09/22/15 I10 Medical History Medical History (Updated 06/23/24 @ 14:48 by Lance Kaiser MD) Hypertension Paroxysmal atrial fibrillation last episode in april of last year prior to starting Tikosyn Osteoarthritis Hyperlipidemia Hernia, umbilical Obesity, Class III, BMI 40-49.9 (morbid obesity) Sleep apnea, obstructive Does not use device Diabetes type 2, controlled Surgical History Surgical History History of cardiac radiofrequency ablation 2003, 2006 [facility] History of neck surgery Removal of bone spurs and fusion, APD 09/2018 eye Total replacement of hip right Colonoscopy - MAC (10/14/16) Tobacco Smoking/Tobacco Use Status: Former Tobacco Use Alcohol Alcohol Intake: never Substance Use Substance use: Never Vital Signs and Lab Results Vital Signs Most Recent Vital Signs in EMR: Most Recent Vital Signs Temp Pulse Resp BP Pulse Ox 36.8 C 68 17 179/64 H 93 06/23/24 09:00 06/23/24 10:51 06/23/24 12:10 06/23/24 10:51 06/23/24 12:10 Lab Results 06/23/24 09:44 06/23/24 09:44 Blood Type / Crossmatch: 2 No Data to Display Complete Blood Count: 2 White Blood Count 10.27 10^3/uL (4.4-10.8) 06/23/24 09:44 Red Blood Count 5.78 10^6/uL (4.36-5.78) 06/23/24 09:44 Hemoglobin 15.8 g/dL (13.5-17.5) 06/23/24 09:44 Hematocrit 50.1 % (40.0-50.0) H 06/23/24 09:44 Platelet Count 233 10^3/uL (130-400) 06/23/24 09:44 Complete Metabolic Panel: 2 Sodium 138 mmol/L (136-145) 06/23/24 09:44 Potassium 4.5 mmol/L (3.5-5.1) 06/23/24 09:44 Chloride 101 mmol/L (98-107) 06/23/24 09:44 Carbon Dioxide 28.7 mmol/L (21.0-32.0) 06/23/24 09:44 BUN 16 mg/dL (7-18) 06/23/24 09:44 Creatinine 0.8 mg/dL (0.70-1.30) 06/23/24 09:44 Est GFR (CKD-EPI 2020) 97.61 (mL/min/1.73m2) 06/23/24 09:44 Calcium 9.4 mg/dL (8.5-10.1) 06/23/24 09:44 Albumin 3.7 g/dL (3.4-5.0) 06/23/24 09:44 Glucose 134 mg/dL (74-106) H 06/23/24 09:44 Liver Function Panel: 2 Alanine Aminotransferase (ALT/SGPT) 20 U/L (16-63) 06/23/24 09: 44 Aspartate Amino Transf (AST/SGOT) 20 U/L (15-37) 06/23/24 09:44 Coagulation Panel: 2 No Data to Display Cardiac Panel: 2 No Data to Display Arterial Blood Gas: 2 No Data to Display Venous Blood Gas: 2 No Data to Display Pancreas Panel: 2 No Data to Display Thyroid Panel: 2 No Data to Display Infectious Disease: 2 No Data to Display Blood Cultures: 2 No Data to Display Toxicology Panel: 2 No Data to Display Anesthesia Assessment and Plan Anesthesia History Personal History: No History of Anesthesia Complications Family History: No Family History of Anesthesia Complications Exercise Tolerance Exercise Tolerance: Metabolic Equivalents>4 Pertinent Negatives Pertinent Negatives: No Symptoms of GERD, No Major Cardiovascular Symptoms or Complaints (Hx of Afib on eliquis, last dose 0800 06/23/2024, followed by cardiology, no CV complaints today), No Major Pulmonary Symptoms or Complaints and No History of CVA/TIA Cardiac & Pulmonary Exam Cardiac Exam: Normal S1/S2 Heart Sounds Pulmonary Exam: Seasonal Allergies Implantable Cardiac Device Does patient have a Pacemaker or an ICD?: No Airway Exam Known Difficult Airway: No Mallampati Class: 2 Mouth Opening: Normal (> 3cm) Thyromental Distance: Greater than 3 cm Neck Range of Motion: Full ROM Neck Circumference: Thick Teeth Condition: Normal Dentition ASA Classification ASA Score: ASA 2 Emergency Case?: No NPO Status NPO Status: Full Stomach Anesthesia Plan Resuscitation Status: Full Code Anesthesia Technique: Primary Nerve Block Airway Planned: Natural Airway Pain Management: Other (ED physician requesting nerve block for acute pain management ) Monitors Used: Standard Monitors Preoperative Comments:: Significant PMH: HTN, GAURAV, OA, Paroxysmal Atrial fibrillation, Hyperlipidemia, Obesity, DM II. Mr. Montoya is being evaluated today in the ER for an acute pain management encounter for possible PANKAJ - right block s/p fx of the right hip. Mr. Montoya has PMH significant for the above, being followed by cardiology for A-fib which he reports has been overall well controlled. 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 He has previously had a right knee replacement which he reports ongoing paresthesia for the lateral aspect of the right knee since. Mr. Montoya does take eliquis for his A-fib which his last dose was approximately 0800 this morning. Given that the PANKAJ block is a fascial plane block which will be conducted under US visualization, and the the access site for this particular block is able to be compressed I believe it reasonable to proceed. This particular risk was discussed at length with the patient in which he verbalizes understanding and wishes to continue with the block. All other risks and concerns discussed with Mr. Montoya who shows understanding of the risks and benefits.
== END 2024-06-23 18:08 | disposition short-term general hospital (02) ==
PROVIDERS: Emergency Provider Student in an Organized Health Care Education/Training Program; PCP Student in an Organized Health Care Education/Training Program
DX: M25.551 Pain in right hip (principal); M97.01XA Periprosthetic fracture around internal prosthetic right hip joint, initial encounter; I10 Essential (primary) hypertension; I48.0 Paroxysmal atrial fibrillation; E78.5 Hyperlipidemia, unspecified; E11.9 Type 2 diabetes mellitus without complications; Z79.01 Long term (current) use of anticoagulants; Z79.4 Long term (current) use of insulin; Z79.84 Long term (current) use of oral hypoglycemic drugs; Z79.85 Long-term (current) use of injectable non-insulin antidiabetic drugs; G89.18 Other acute postprocedural pain
CPT/HCPCS: 36415; 64447; 64450; 73552; 76942; 80053; 96374; 96375; 99285; 85025; C9290; J0665; J1171; J2003

== ENCOUNTER 2024-09-10 15:29 | Outpatient (REF) | payer MEDICARE, SELFPAY ==
[2024-09-10 16:22] LABS: COMMENT (LAB VIEW ONLY) 57.96 mg/dL; Microalb ug/mg Crea 7.6 ug/mg Cr
== END 2024-09-10 15:30 | disposition home or self-care (01) ==
LOC: NCHCN 15:29
PROVIDERS: PCP Student in an Organized Health Care Education/Training Program; Visit Provider Student in an Organized Health Care Education/Training Program
DX: E11.9 Type 2 diabetes mellitus without complications (principal)
CPT/HCPCS: 82043; 82570

== ENCOUNTER 2025-04-05 12:09 | Emergency (ER) | payer MEDICARE, SELFPAY ==
[2025-04-05] VITALS (25 sets, daily range): BP systolic 131–198; BP diastolic 54–104; PULSE 53–72; RESP 14–25; TEMP 36.8; O2SAT 94–98
--- NOTE | 2025-04-05 12:15 | RT.EKG_ITS ---
APPROVED REPORT Exam: Resting ECG Reason for Exam: Dizziness Patient Location: E HR:68 bpm ECG Measurements Heart Rate 68 AXIS OR 136 P 56 QRSd 102 QRS 18 QT 438 T 30 QTc 463 Conclusion Sinus rhythm...normal P axis, V-rate 60- 99 Atrial premature complex...SV complex w/ short R-R interval Sinus rhythm with PAC. No prior. WD
--- NOTE | 2025-04-05 13:15 | DI.CT_ITS ---
Exam(s) CT BRAIN NECK CTA EXAM: CT BRAIN NECK CTA CLINICAL HISTORY: dizziness. TECHNIQUE: Imaging Protocol: Axial CT angiography was performed with multi- slice acquisition and multi-planar and/or 3D reconstructions. CONTRAST MATERIAL: Intravenous: Omnipaque 350 Contrast volume:70 mL COMPARISON: No exams were available for comparison FINDINGS: CTA Neck W: Aortic arch anatomy: The aortic arch anatomy is conventional and there is no significant stenosis at the origin of the great vessels off of the aortic arch. No intimal flap evident. Anterior circulation: Both common carotid arteries ascend with normal luminal diameters. At the level the right carotid bulb and proximal right ICA there is some partially calcified plaque. Amount of stenosis is estimated at less than 20 percent. The right ICA in the upper neck is seen to be patent as well as within the skull base. At the level of the left carotid bulb there is mild calcified plaque without significant stenosis at this level nor within the proximal left ICA and the ICA in the upper neck is also demonstrated to be patent as well as in the skull base Posterior circulation: Both vertebral arteries originate in conventional fashion off of the subclavian arteries and there is no obvious stenosis at the origin of the vertebral arteries. The right vertebral artery is dominant. There is no significant stenosis nor intraluminal thrombosis nor dissection within the vertebral arteries. At the skull base the basilar artery is formed predominately by the dominant right vertebral artery. The left vertebral artery at this level contributes as a thin vessel to the formation of the basilar artery. CTA Brain W: Anterior circulation: Both internal carotid arteries are patent in the skull base-carotid canals as well as within the cavernous sinuses. There is mural calcification within the intra cavernous internal carotid arteries but without hemodynamically significant stenosis at this level on either side. The supraclinoid aspects of the ICAs are patent. Both A1 segments are patent as are the anterior cerebral arteries and there is no evidence of aneurysm at the level of the anterior communicating artery. Both middle cerebral arteries are patent with no evidence of significant stenosis nor intraluminal thrombus. There also no aneurysms of these vessels. Posterior circulation: The basilar artery ascends without significant stenosis. Distally it gives off superior cerebellar arteries and above this level terminates as patent right posterior cerebral artery. The left posterior cerebral artery is predominantly fed by a posterior communicating artery on the left side of the ci [id number]. The left P1 segment is atretic. There is no evidence of aneurysm at the tip of the basilar artery nor elsewhere in the [id number]. CT BRAIN: There are no skull fractures. There is almost complete opacification of the right maxillary sinus as well as mucoperiosteal thickening of the right maxillary sinus and what appears to be a probable medial wall surgical defect. The opposite-left maxillary sinus appears unremarkable as do the sphenoid and frontal sinuses and there is also no evidence of significant opacification of the ethmoidal air cells. Mastoid air cells are also clear. There is no evidence of intracranial hemorrhage, mass effect, or shift of midline structures. There are no extra-axial fluid collections. Ventricles are not enlarged or shifted. There are no ring enhancing lesions in the brain and no abnormal meningeal enhancement. There is mild periventricular hypodensity consistent with clinical vessel disease. No obvious acute infarct evident. IMPRESSION: 1. There is mild partially calcified plaque at the carotid bulbs and proximal internal carotid arteries bulb without hemodynamically significant stenosis. Amount of stenosis is estimated at less than 20 percent bilaterally. Also no evidence of carotid artery dissection. 2. Patent vertebral arteries. The right vertebral artery is dominant. 3. Patent intracranial arteries. There is a posterior communicating artery in left side of the [place] of will is which is the predominant feeder of the patent left posterior cerebral artery. The right posterior cerebral artery originates in conventional fashion off of the tip of the basilar artery. 4. No aneurysms nor vascular malformations. No ring enhancing lesions in the brain. 5. If clinically indicated MRI with diffusion imaging can be performed. Report called by myself to ER provider 04/05/2025 at 3:40 p.m. RADIATION DOSE DELIVERED: 2,406.04mGy.cm Total DLP DATA REPOSITORY: All CT scans at this facility are submitted to the National Radiology Data Registry (NRDR) Dose Index Registry (DIR) with the [employer] (A[employer]). RADIATION OPTIMIZATION: All CT scans at this facility use at least one of these dose optimization techniques: automated exposure control; mA and/or kV adjustment per patient size (includes targeted exams where dose is matched to clinical indication); or iterative reconstruction.
[2025-04-05] MEDS: Normal Saline 500 ML IV (13:30)
--- NOTE | 2025-04-05 13:43 | W.ED.GENAD ---
Discharge Plan Disposition Patient Disposition: Home Condition: Stable Discharge Details Clinical Impression: Dizziness of unknown cause Primary Care Provider: Hany Costa ED Provider: Atif Whimtan Home Meds and New Rx's Prescriptions: No Action Invokana 300 mg tablet 300 mg PO DAILY dofetilide 500 mcg capsule 500 mcg PO Q12H sildenafil [Viagra] 50 mg tablet 50 mg PO DAILY PRN Rx Instructions: administer 30 minutes to 4 hours before activity rosuvastatin 40 mg tablet 40 mg PO DAILY celecoxib [Celebrex] 200 mg capsule 200 mg PO BID felodipine 2.5 mg tablet extended release 24 hr 2.5 mg PO DAILY Eliquis 5 mg tablet 5 mg PO BID spironolactone 25 MG tablet 12.5 mg PO DAILY acetaminophen [Tylenol] 325 MG tablet 650 mg PO PRN PRN insulin glargine [Lantus U-100 Insulin] 100 UNIT/1 ML solution 38 unit SQ HS Patient Comments: Pt reports per DSU, he took 1/2 dose. metformin [Glucophage] 1,000 MG tablet 1,000 mg PO BID metoprolol tartrate 100 MG tablet 50 mg PO BID lisinopril 40 MG tablet 40 mg PO DAILY glipizide 10 MG tablet 10 mg PO DAILY magnesium 250 mg Tablet 250 mg PO DAILY liraglutide [Victoza 2-Boone] 0.6 mg/0.1 mL (18 mg/3 mL) pen injector 0.6 mg subcut DAILY Discharge Instructions Instructions: Dizziness, Adult ED Additional Instructions: You were seen in the emergency department for your brief episodic dizziness without chest pain, you felt a little lightheaded, this could be due to your atrial fibrillation, your neuroexam is normal, we ruled out any damage to the heart and there is no evidence of any stroke. Your electrolytes are all within normal limits, please try to stay well-hydrated and nourished this evening. Follow-up with your primary care provider and your cyber intelligence analyst they are seen in the emergency department please return for any further episodes of dizziness especially shortness of breath, near fainting, neurologic abnormality. Your INR was a little low at 1.7, please follow-up with your PCP for this. Referrals: Hany Costa [Primary Care Provider, Medicine] Discharge Data Discharge Date/Time-TO BE ENTERED AT DEPARTURE: 04/05/25 16:53 HPI General Date/Time Provider Initiated Documentation: 04/05/25 12:13. HPI Narrative: 65 year-old male presents to ED today by POV/ambulating with a chief complaint of lightheadedness that started today while driving back from a road trip in [place]. Quality described as lightheadedness, needed to pot puller, no radiation to chest pain, shortness of breath, cough, fever, syncope, nausea/vomiting. Severity is described as moderate. Palliating factors include nothing specific attempted. Provoking factors include nothing specific- not exercising at onset. Patient is anticoagulated warfarin- recently switched from Eliquis due to insurance not covering it. Recent INR 2.5. Related Data Home Medications ?Medication ?Instructions ?Recorded ?Confirmed acetaminophen 325 mg tablet 650 mg PO PRN PRN 01/12/13 04/05/25 (Tylenol) insulin glargine 100 unit/mL 38 unit SQ HS 01/12/13 04/05/25 subcutaneous solution (Lantus U-100 Insulin) metformin 1,000 mg tablet 1,000 mg PO BID 01/12/13 04/05/25 (Glucophage) metoprolol tartrate 100 mg tablet 50 mg PO BID atrial fibrillation 09/19/15 04/05/25 lisinopril 40 mg tablet 40 mg PO DAILY 02/01/16 04/05/25 glipizide 10 mg tablet 10 mg PO DAILY 03/26/17 04/05/25 spironolactone 25 mg tablet 12.5 mg PO DAILY 07/17/17 04/05/25 magnesium 250 mg tablet 250 mg PO DAILY 01/12/20 04/05/25 apixaban 5 mg tablet (Eliquis) 5 mg PO BID 04/22/22 04/05/25 canagliflozin 300 mg tablet 300 mg PO DAILY 05/12/23 04/05/25 (Invokana) celecoxib 200 mg capsule (Celebrex) 200 mg PO BID 05/12/23 04/05/25 dofetilide 500 mcg capsule 500 mcg PO Q12H 05/12/23 04/05/25 felodipine 2.5 mg tablet,extended 2.5 mg PO DAILY 05/12/23 04/05/25 release 24 hr rosuvastatin 40 mg tablet 40 mg PO DAILY 05/12/23 04/05/25 sildenafil 50 mg tablet (Viagra) 50 mg PO DAILY PRN 05/12/23 04/05/25 liraglutide 0.6 mg/0.1 mL (18 mg/3 0.6 mg subcut DAILY 06/15/24 04/05/25 mL) subcutaneous pen injector (Victoza 2-Boone) Allergies Allergy/AdvReac Type Severity Reaction Status Date / Time No Known Allergies Allergy Verified 04/05/25 12:29 General Stated Complaint: Dizzy/Sync EDIE: 3 Review of Systems All systems reviewed & are unremarkable except as noted in HPI and below Exam Narrative Exam Narrative: GENERAL APPEARANCE: Well-nourished, non-toxic, awake and alert, atraumatic, no acute distress. SKIN: Warm, pink, dry, intact, without rashes/lesions/ulcerations. HEAD: Normocephalic, atraumatic, normal hair distribution for gender/age. EYES: Normal conjunctiva, no exudates on lids/lashes. ENT: Nares patent, no circumoral cyanosis, no facial swelling NECK: Supple, trachea midline, painless cervical ROM. LUNGS/CHEST: Lungs CTA bilaterally- no rhonchi/rales/wheezes diffusely, non-labored respirations, normal A/P diameter, symmetrical expansion, no chest wall deformity HEART (CV/PV): Regular rate and rhythm without murmur, no peripheral edema, no JVD. ABDOMEN: Soft, non-distended, no guarding, no tenderness. MSK: Normal ROM, no swelling/deformity to bilateral UEs or LEs, moving all extremities without weakness, no cyanosis, spine midline without tenderness, normal curvature. NEURO: Mental Status AAOx4 - alert to person, place, time, events No facial droop, no forehead involvement, no dysmetria with cerebellar testing Motor: No focal weakness - strength 5/5 in bilateral UEs and LEs, proximal and distal, symmetric. Sensory: sensation intact to light touch globally. Gait normal: patient ambulated without ataxia into ED room. PSYCH: euthymic, cooperative, pleasant, appropriate speech Course Vital Signs Vital signs: Vital Signs Temperature 36.8 C 04/05/25 12:21 Pulse 66 04/05/25 12:21 Respiratory Rate 18 04/05/25 12:21 Blood Pressure 198/104 H 04/05/25 12:21 Pulse Oximetry 96 04/05/25 12:21 Temperature 36.8 C 04/05/25 12:21 Temperature Source Oral 04/05/25 12:21 Pulse 65 04/05/25 13:32 Respiratory Rate 16 04/05/25 13:32 Blood Pressure 144/54 H 04/05/25 13:32 Blood Pressure Mean 84 04/05/25 13:32 Pulse Oximetry 97 04/05/25 13:32 Oxygen Delivery Method Room Air 04/05/25 13:32 Oxygen Flow Rate 0 04/05/25 13:32 Pain Level 0 04/05/25 13:32 Medical Decision Making This dictation utilizes [id number] dictation software and may contain unedited grammatical errors. 65 year-old male presents to ED today by POV/ambulating with a chief complaint of lightheadedness that started today while driving back from a road trip in [place]. Quality described as lightheadedness, needed to pot puller, no radiation to chest pain, shortness of breath, cough, fever, syncope, nausea/vomiting. Severity is described as moderate. Palliating factors include nothing specific attempted. Provoking factors include nothing specific- not exercising at onset. Patients' medical history: Paroxysmal atrial fibrillation lipidemia, obesity, T2DM, hypertension. Family and social history: Noncontributory he states he has been hydrated a well-nourished lately. Pertinent exam findings / vital signs include benign cardiopulmonary exam, hypertensive on arrival that resolved, benign abdomen, neuro intact. Differential / pathologies of concern include, stroke or other intracranial pathology like malignancy, dehydration, infection, electrolyte derangement, ACS, CHF, thyroid pathology, UTI, pneumonia, DKA, vasovagal response. Diagnostic studies of: - CBC, CMP, PT/INR, VBG, serial troponins, BNP, TSH, UA, EKG, CTA brain and neck, XR chest. -CBC is unremarkable without leukocytosis or anemia - PT is 16.7 with an INR of 1.7 recommend he follow-up with his regular provider, has a warfarin dose later today - CMP shows no actionable abnormality - Magnesium within normal limits - Serial troponins negative - BNP within normal limits - TSH is low with a normal T4 - UA is benign - CTA of the brain and neck shows no acute pathology - X-ray chest is benign - EKG shows sinus rhythm at 63/min with P waves with a narrow complex QRS, normal axis, normal intervals, no ST changes of ischemia Interventions of: - 500mL IVF NS, 25mg Meclizine PO - with some significant improvement at end of visit. - HEART Score low, [place] Syncope risk low - reasonable to follow outpatient with no actual syncope today ED Course/Assessment/Plan: 65-year-old male presents with some dizziness while coming back from a road trip in [place], his cardiac workup is benign, no evidence of stroke or other intracranial pathology, no signs of diabetic ketoacidosis, UTI, respiratory problem causing hypoventilation, VBG is benign, no evidence for any electrolyte derangement. States that he has been eating some heavy and salty meals, did endorse some palpitations later in the visit, it is possible that he was in some A-fib due to this which caused some mild dizziness which did not cause syncope, he is a low risk it is reasonable to follow-up outpatient, he felt better by the end of the visit was comfortable with discharge and following up with his PCP. Disposition of Dizziness of Unknown Cause. Patient verbalized understanding of the plan and return to ED criteria and engaged in shared decision making. Medical Records Medical records reviewed: Yes I reviewed the patient's medical records. Imaging Data Radiologic Study: Attestation: I personally reviewed and interpreted this imaging study as follows: Imaging: CT Scan Radiologist's impression: EXAM: CT BRAIN NECK CTA CLINICAL HISTORY: dizziness. TECHNIQUE: Imaging Protocol: Axial CT angiography was performed with multi-slice acquisition and multi-planar and/or 3D reconstructions. CONTRAST MATERIAL: Intravenous: Omnipaque 350 Contrast volume:70 mL COMPARISON: No exams were available for comparison FINDINGS: CTA Neck W: Aortic arch anatomy: The aortic arch anatomy is conventional and there is no significant stenosis at the origin of the great vessels off of the aortic arch. No intimal flap evident. Anterior circulation: Both common carotid arteries ascend with normal luminal diameters. At the level the right carotid bulb and proximal right ICA there is some partially calcified plaque. Amount of stenosis is estimated at less than 20 percent. The right ICA in the upper neck is seen to be patent as well as within the skull base. At the level of the left carotid bulb there is mild calcified plaque without significant stenosis at this level nor within the proximal left ICA and the ICA in the upper neck is also demonstrated to be patent as well as in the skull base Posterior circulation: Both vertebral arteries originate in conventional fashion off of the subclavian arteries and there is no obvious stenosis at the origin of the vertebral arteries. The right vertebral artery is dominant. There is no significant stenosis nor intraluminal thrombosis nor dissection within the vertebral arteries. At the skull base the basilar artery is formed predominately by the dominant right vertebral artery. The left vertebral artery at this level contributes as a thin vessel to the formation of the basilar artery. CTA Brain W: Anterior circulation: Both internal carotid arteries are patent in the skull base-carotid canals as well as within the cavernous sinuses. There is mural calcification within the intra cavernous internal carotid arteries but without hemodynamically significant stenosis at this level on either side. The supraclinoid aspects of the ICAs are patent. Both A1 segments are patent as are the anterior cerebral arteries and there is no evidence of aneurysm at the level of the anterior communicating artery. Both middle cerebral arteries are patent with no evidence of significant stenosis nor intraluminal thrombus. There also no aneurysms of these vessels. Posterior circulation: The basilar artery ascends without significant stenosis. Distally it gives off superior cerebellar arteries and above this level terminates as patent right posterior cerebral artery. The left posterior cerebral artery is predominantly fed by a posterior communicating artery on the left side of the [id number]. The left P1 segment is atretic. There is no evidence of aneurysm at the tip of the basilar artery nor elsewhere in the [id number]. CT BRAIN: There are no skull fractures. There is almost complete opacification of the right maxillary sinus as well as mucoperiosteal thickening of the right maxillary sinus and what appears to be a probable medial wall surgical defect. The opposite-left maxillary sinus appears unremarkable as do the sphenoid and frontal sinuses and there is also no evidence of significant opacification of the ethmoidal air cells. Mastoid air cells are also clear. There is no evidence of intracranial hemorrhage, mass effect, or shift of midline structures. There are no extra-axial fluid collections. Ventricles are not enlarged or shifted. There are no ring enhancing lesions in the brain and no abnormal meningeal enhancement. There is mild periventricular hypodensity consistent with clinical vessel disease. No obvious acute infarct evident. IMPRESSION: 1. There is mild partially calcified plaque at the carotid bulbs and proximal internal carotid arteries bulb without hemodynamically significant stenosis. Amount of stenosis is estimated at less than 20 percent bilaterally. Also no evidence of carotid artery dissection. 2. Patent vertebral arteries. The right vertebral artery is dominant. 3. Patent intracranial arteries. There is a posterior communicating artery in left side of the [place] of will is which is the predominant feeder of the patent left posterior cerebral artery. The right posterior cerebral artery originates in conventional fashion off of the tip of the basilar artery. 4. No aneurysms nor vascular malformations. No ring enhancing lesions in the brain. 5. If clinically indicated MRI with diffusion imaging can be performed. Report called by myself to ER provider 04/05/2025 at 3:40 p.m. Radiologic Study #2: Attestation: I personally reviewed and interpreted this imaging study as follows: Imaging: X-Ray Radiologist's impression: EXAM: XR CHEST 2V PA LATERAL CLINICAL HISTORY: dizziness TECHNIQUE: 2D digital imaging was performed of the chest. Two images were obtained. PA and lateral views were obtained. COMPARISON: No exams were available for comparison FINDINGS: MEDIASTINUM: Normal. HEART: The heart is at the upper limits of normal in size. PULMONARY VASCULATURE: Normal. LUNGS: There are no focal consolidating infiltrates. PLEURAL SPACE: No pleural effusion or pneumothorax. BONE:Within normal limits for the patient's age. OTHER FINDINGS:Normal. IMPRESSION: No acute pulmonary findings. Lab Data Lab results reviewed: Yes I reviewed the patient's lab results. Labs: Laboratory Tests Range/Units 04/05/25 04/05/25 04/05/25 13:30 13:45 14:45 WBC (4.4-10.8) 10^3/uL 9.16 RBC (4.36-5.78) 10^6/uL 4.99 Hgb (13.5-17.5) g/dL 13.6 Hct (40.0-50.0) % 42.5 MCV (80-95) fL 85 MCH (27.0-33.0) pg 27.3 MCHC (32.0-36.0) % 32.0 RDW (11.8-14.1) % 14.6 H Plt Count (130-400) 10^3/uL 234 MPV (8.0-11.0) fL 10.7 Immature Gran % % 0.2 Neutrophils % % 71.6 Lymphocytes % % 16.3 Monocytes % % 9.5 Eosinophils % % 1.7 Basophils % % 0.7 Nucleated RBC % (0.0-0.3) % 0.0 Absolute Neutrophils (1.2-6.7) 10^3/uL 6.56 Absolute Lymphocytes (1.2-3.4) 10^3/uL 1.49 Absolute Monocytes (0.1-0.8) 10^3/uL 0.87 H Absolute Eosinophils (0.0-0.7) 10^3/uL 0.16 Absolute Basophils (0.0-0.2) 10^3/uL 0.06 PT (9.1-11.1) sec 16.7 H INR (0.9-1.1) 1.7 H VBG pH (7.31-7.41) 7.40 VBG pCO2 (41-51) mmHg 43 VBG pO2 mmHg 44 VBG HCO3 (23-28) mmol/L 26 VBG Total CO2 (24-29) mmol/L 23 L VBG O2 Saturation % 82 VBG Base Excess (-2-3) mmol/L 2 Sodium (136-145) mmol/L 136 Potassium (3.5-5.1) mmol/L 4.3 Chloride (98-107) mmol/L 100 Carbon Dioxide (21.0-32.0) mmol/L 30.4 Anion Gap (3-11) mmol/L 5.6 BUN (7-18) mg/dL 15 Creatinine (0.70-1.30) mg/dL 0.6 L Est GFR (CKD-EPI 2020) (mL/min/1.73m2) 105.80 Glucose (74-106) mg/dL 167 H Calcium (8.5-10.1) mg/dL 9.0 Magnesium (1.8-2.4) mg/dL 1.9 Total Bilirubin (0.2-1.0) mg/dL 0.4 AST (15-37) U/L 14 L ALT (16-63) U/L 20 Alkaline Phosphatase (46-116) U/L 69 Troponin I (<or=76) ng/L 5 5 NT-Pro-B Natriuret Pep (<300) pg/mL 98 Total Protein (6.4-8.2) g/dL 7.3 Albumin (3.4-5.0) g/dL 3.5 TSH (0.36-3.74) uIU/mL 0.32 L Free T4 (0.76-1.46) ng/dL 0.99 Urine Color (Yellow) Yellow Urine Clarity (Clear) Sl Cloudy Urine pH (5-8) 6.0 Ur Specific [place] (1.005-1.025) 1.020 Urine Protein (Neg-Trace) mg/dL Negative Urine Ketones (Negative) mg/dL Negative Urine Blood (Negative) Negative Urine Nitrite (Negative) Negative Urine Bilirubin (Negative) Negative Urine Urobilinogen (Up to 0.2) mg/dL 0.2 Ur Leukocyte Esterase (Negative) Negative Urine Glucose (Negative) mg/dL Negative PFSH All Active Problems (Updated 04/05/25 @ 16:28 by SAM Jim) Dizziness of unknown cause (Acute) Trochanteric bursitis of right hip (Acute) Trochanteric bursitis of left hip (Acute) Femoroacetabular impingement of left hip (Acute) Acute neck pain (Acute) Bursitis of right shoulder (Acute) Impingement syndrome of right shoulder (Acute) Traumatic tear of right rotator cuff (Acute) Rupture of right proximal biceps tendon (Acute ~10/2020) Status post total knee replacement, right (Acute 01/17/20) Atrial fibrillation with rapid ventricular response (Acute 03/03/15) Anticoagulated on Coumadin (Chronic) Lower extremity edema (Chronic) Morbid obesity (Chronic) GAURAV (obstructive sleep apnea) (Chronic) IDDM (insulin dependent diabetes mellitus) (Chronic) Uncontrolled hypertension (Acute 03/03/15) Hyperlipidemia (Chronic) H/O surgical procedure (Chronic) a. R THR b. FB right eye 1977 repaired, preserving vision c. 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 (Acute 11/28/17) Essential hypertension (Acute 09/22/15) Medical History (Updated 04/05/25 @ 16:28 by SAM Jim) Hypertension Paroxysmal atrial fibrillation last episode in april of last year prior to starting Tikosyn Osteoarthritis Hyperlipidemia Hernia, umbilical Obesity, Class III, BMI 40-49.9 (morbid obesity) Sleep apnea, obstructive Does not use device Diabetes type 2, controlled Surgical History History of cardiac radiofrequency ablation 2003, 2006 [facility] History of neck surgery Removal of bone spurs and fusion, APD 09/2018 eye Total replacement of hip right Colonoscopy - MAC (10/14/16) Family History Mother Diabetes Heart disease Father Heart disease Glaucoma Social History Smoking/Tobacco Use Status: Former Tobacco Use Quit Date: 09/01/90 Tobacco: How many years used: 13 Smoking risk assessment performed?: Yes Alcohol Intake: never Drug use: Never Household members: spouse Housing: house Current gender identity: male Do you feel safe at home: Yes Do you feel safe in your relationship?: Yes
[2025-04-05 13:51] LABS: Glucose Negative (Negative)
[2025-04-05 14:04] LABS: BE (Venous) 2 mmol/L (-2-3); HCO3 (Venous) 26 mmol/L (23-28); O2 Sat (Venous) 82 %; TCO2 (Venous) 23 mmol/L (24-29); pCO2 (Venous) 43 mmHg (41-51); pO2 (Venous) 44 mmHg
[2025-04-05 14:06] LABS: Abs Immature Grans 0.02 10^3/uL (0.0-0.06); HCT 42.5 % (40.0-50.0); HGB 13.6 g/dL (13.5-17.5); Immature Grans % 0.2 %; MCH 27.3 pg (27.0-33.0); MCHC 32.0 % (32.0-36.0); MCV 85 fL (80-95); MPV 10.7 fL (8.0-11.0); Platelet Count 234 10^3/uL (130-400); RBC 4.99 10^6/uL (4.36-5.78); RDW 14.6 % (11.8-14.1); RDW-SD 45.1 fL; WBC 9.16 10^3/uL (4.4-10.8)
[2025-04-05 14:27] LABS: INR 1.7 (0.9-1.1); Prothrombin Time 16.7 sec (9.1-11.1)
[2025-04-05 14:36] LABS: ALT 20 U/L (16-63); AST 14 U/L (15-37); Albumin 3.5 g/dL (3.4-5.0); Anion Gap 5.6 mmol/L (3-11); BUN 15 mg/dL (7-18); Bilirubin, Total 0.4 mg/dL (0.2-1.0); CO2 30.4 mmol/L (21.0-32.0); Calcium 9.0 mg/dL (8.5-10.1); Chloride 100 mmol/L (98-107); Glucose 167 mg/dL (74-106); Magnesium 1.9 mg/dL (1.8-2.4); NT-proBNP 98 pg/mL (<300); Potassium 4.3 mmol/L (3.5-5.1); Sodium 136 mmol/L (136-145); TSH (W/Ref FT4) 0.32 uIU/mL (0.36-3.74); Total Protein 7.3 g/dL (6.4-8.2); Troponin I 5 ng/L (<or=76)
[2025-04-05 14:48] LABS: Alkaline Phosphatase 69 U/L (46-116)
[2025-04-05] MEDS: Normal Saline - Diluent 50 ML VIAL IJ (15:15)
[2025-04-05] MEDS: Omnipaque 350 MG/ML 100 ML BTL 70 ML IJ (15:19)
[2025-04-05 15:20] LABS: Troponin I 5 ng/L (<or=76)
--- NOTE | 2025-04-05 15:30 | DI.RAD_ITS ---
Exam(s) XR CHEST 2V PA LATERAL EXAM: XR CHEST 2V PA LATERAL CLINICAL HISTORY: dizziness TECHNIQUE: 2D digital imaging was performed of the chest. Two images were obtained. PA and lateral views were obtained. COMPARISON: No exams were available for comparison FINDINGS: MEDIASTINUM: Normal. HEART: The heart is at the upper limits of normal in size. PULMONARY VASCULATURE: Normal. LUNGS: There are no focal consolidating infiltrates. PLEURAL SPACE: No pleural effusion or pneumothorax. BONE:Within normal limits for the patient's age. OTHER FINDINGS:Normal. IMPRESSION: No acute pulmonary findings. DATA REPOSITORY: RADIATION DOSE DELIVERED:
[2025-04-05] MEDS: Meclizine 25 MG TAB PO (16:42)
[2025-04-06 09:25] LABS: Lyme Ab w Rflx to Lyme Confirm Negative (Negative)
[2025-04-08 14:10] LABS: B. miyamotoi PCR Negative (Negative); Babesia divergens/MO-1 Negative (Negative); Ehrlichia muris eauclairensis Negative (Negative)
== END 2025-04-05 16:53 | disposition home or self-care (01) ==
PROVIDERS: Emergency Provider Physician Assistant; PCP Student in an Organized Health Care Education/Training Program
DX: R42 Dizziness and giddiness (principal); I48.91 Unspecified atrial fibrillation; E78.5 Hyperlipidemia, unspecified; I10 Essential (primary) hypertension; E11.9 Type 2 diabetes mellitus without complications; Z79.4 Long term (current) use of insulin; Z79.84 Long term (current) use of oral hypoglycemic drugs; Z79.85 Long-term (current) use of injectable non-insulin antidiabetic drugs; Z79.01 Long term (current) use of anticoagulants; Z87.891 Personal history of nicotine dependence
CPT/HCPCS: 36415; 70496; 70498; 80053; 82805; 82962; 87798; 93005; 96360; 96361; 99285; 71046; 81003; 83735; 83880; 84439; 84443; 84484; 85025; 85610; 86618; 93010; J3490